=== PATIENT | male | born 1960 | race Caucasian/White ===

== ENCOUNTER 2016-11-26 11:42 | Inpatient (IN) | payer BC, OTHER ==
[~2016-11-26] VITALS: Ht 170.2 cm; Wt 79.2 kg
--- NOTE | 2016-11-26 13:20 | ERA ---
ER Documentation Chief Complaint Date/Time DATE: 11/26/16 TIME: 13:20 Chief Complaint send by pmd r/o gallstones ap x 4 days HPI The patient is a 56-year-old male, presenting with severe epigastric abdominal pain for 4 day, also with vomiting. He had similar symptoms intermittently for the last year but was for the last 4 days. He was seen by his physician who sent him to the ER. He denies fever, chills, neck pain, chest pain, nausea, vomiting, dysuria, diarrhea. He was seen at another the ER 4 days ago when he had an ultrasound that showed multiple gallstones. He does not smoke nor drink Past medical history: Cholelithiasis, CAD Past surgical history CABG, stent PCI ROS All systems reviewed and are negative except as per history of present illness. Medications Home Meds Reported Medications Clopidogrel Bisulfate (Clopidogrel) Unknown Strength Tablet, PO DAILY, #30 TAB 11/26/16 Atorvastatin* (Atorvastatin*) Unknown Strength Tablet, PO QHS, #30 TAB 11/26/16 Nitroglycerin* (Nitroglycerin* SL) 0.4 Mg Tab.subl, 0.4 MG SL Q5MIN Y for CHEST PAIN, BOTTLE 11/26/16 Fenofibrate* (Fenofibrate*) Unknown Strength Cap, PO DAILY, CAP 11/26/16 Metoprolol Succinate* (Toprol XL*) Unknown Strength Tab.sr.24h, PO DAILY, #30 TAB 11/26/16 Allergies Allergies: Coded Allergies: No Known Allergy (Unverified , 11/26/16) Physical Exam Vitals Vital Signs Date Time Temp Pulse Resp B/P Pulse Ox O2 Delivery O2 Flow Rate FiO2 11/26/16 16:02 58 20 107/78 97 Room Air 11/26/16 11:45 98.2 76 18 142/76 99 Physical Exam Const: No acute distress. Head: Atraumatic. Eyes: Normal Conjunctiva. ENT: Normal External Ears, Nose and Mouth. Neck: Full range of motion. No meningismus. Resp: Clear to auscultation bilaterally. Cardio: Regular rate and rhythm. Abd: Soft, non distended, normal bowel sounds, Moderate epigastric and right upper quadrant tenderness, no right lower quadrant, rigidity, rebound , CVA tenderness Skin: No petechiae or rashes. Back: No midline or flank tenderness. Ext: No cyanosis, or edema. Neur: Awake and alert. No focal deficit Psych: Normal Mood and Affect. Result Diagram: 11/26/16 1324 11/26/16 1324 Results 24 hrs Laboratory Tests Test 11/26/16 13:24 11/26/16 15:13 White Blood Count 5.810^3/ul Red Blood Count 6.5010^6/ul Hemoglobin 12.4g/dl Hematocrit 39.9% Mean Corpuscular Volume 61.4fl Mean Corpuscular Hemoglobin 19.1pg Mean Corpuscular Hemoglobin Concent 31.1g/dl Red Cell Distribution Width 16.4% Platelet Count 36517^3/UL Mean Platelet Volume fl Neutrophils % 72.6% Lymphocytes % 13.9% Monocytes % 11.3% Eosinophils % 1.7% Basophils % 0.2% Nucleated Red Blood Cells % 0.0/100WBC Neutrophils # 4.210^3/ul Lymphocytes # 0.810^3/ul Monocytes # 0.710^3/ul Eosinophils # 0.110^3/ul Basophils # 0.010^3/ul Nucleated Red Blood Cells # 0.010^3/ul Prothrombin Time 12.4Sec Prothrombin Time Ratio 1.0 INR International Normalized Ratio 0.92 Activated Partial Thromboplast Time 36.9Sec Sodium Level 143mmol/L Potassium Level 5.2mmol/L Chloride Level 106mmol/L Carbon Dioxide Level 26mmol/L Anion Gap 16 Blood Urea Nitrogen 17mg/dl Creatinine 1.52mg/dl Glucose Level 103mg/dl Calcium Level 10.1mg/dl Iron Level 27ug/dl Total Iron Binding Capacity 315ug/dl Percent Iron Saturation 9% SAT Ferritin 349.0ng/ml Total Bilirubin 3.3mg/dl Direct Bilirubin 2.30mg/dl Indirect Bilirubin 1.0mg/dl Aspartate Amino Transf (AST/SGOT) 201IU/L Alanine Aminotransferase (ALT/SGPT) 166IU/L Alkaline Phosphatase 86IU/L Total Protein 8.4g/dl Albumin 4.4g/dl Globulin 4.00g/dl Albumin/Globulin Ratio 1.10 Lipase 146U/L Bedside Urine pH (LAB) 6.5 Bedside Urine Protein (LAB) Negative Bedside Urine Glucose (UA) Negative Bedside Urine Ketones (LAB) Negative Bedside Urine Blood 1+ Bedside Urine Nitrite (LAB) Negative Bedside Urine Leukocyte Esterase (L Negative Current Medications Medications (Trade) Dose Ordered Sig/Alyssia Route PRN Reason Start Time Stop Time Status Last Admin Dose Admin Morphine Sulfate (morphine) 4 mg ONCE STAT IV 11/26/16 13:29 11/26/16 13:30 DC 11/26/16 14:04 Ondansetron HCl 4 mg 4 mg ONCE STAT IV 11/26/16 13:29 11/26/16 13:30 DC 11/26/16 14:04 Sodium Chloride 1,000 ml @ 1,000 mls/hr Q1H ONCE IV 11/26/16 13:30 11/26/16 14:29 DC 11/26/16 14:04 Piperacillin Sod/ Tazobactam Sod 100 ml @ 200 mls/hr ONCE ONCE IVPB 11/26/16 16:00 11/26/16 16:29 DC 11/26/16 15:55 Sodium Chloride (NS) 1,000 ml @ 100 mls/hr Q10H IV 11/26/16 17:30 11/26/16 17:55 IV Flush (NS 3 ml) 3 ml PER PROTOCOL IV 11/26/16 17:30 Ondansetron HCl (Zofran Inj) 4 mg Q6H PRN IV NAUSEA AND/OR VOMITING 11/26/16 17:30 Acetaminophen/ Hydrocodone Bitart (Kanorado (5/325)) 1 tab Q6H PRN PO MODERATE PAIN LEVEL 4-6 11/26/16 17:30 Morphine Sulfate (morphine) 2 mg Q4H PRN IV SEVERE PAIN LEVEL 7-10 11/26/16 17:30 Procedures/[place] [id number] Radiology Main Line: [phone] DIAGNOSTIC IMAGING REPORT Patient: JESSENIA BOYLE : 1960 Age: 56 Sex: M MR #: [id number] DOS: 11/26/16 0000 Ordering MD: CRISSY TALLEY NP Location: E/R Room/Bed: PROCEDURE: XR Chest. CLINICAL INDICATION: No infiltrates TECHNIQUE: AP Portable chest. COMPARISON: No pertinent prior examinations were submitted for comparison. FINDINGS: Sternotomy wires and mediastinal clips are visualized. The cardiac silhouette is enlarged. The lung volumes are low with basilar atelectasis. No focal consolidation, pleural effusion or pneumothorax is seen. The osseous structures are intact. IMPRESSION: No radiographic evidence of acute cardiopulmonary disease. Cardiomegaly, prior CABG. Physician Jennifer Date Time Electronically viewed and signed by Shaniqua Najera Physician on 11/26/2016 18: 10 CS/ CC: CRISSY TALLEY [place] [id number] Radiology Main Line: [phone] DIAGNOSTIC IMAGING REPORT Patient: JESSENIA BOYLE : 1960 Age: 56 Sex: M MR #: [id number] DOS: 11/26/16 1329 Ordering MD: LUDIVINA ROJAS MD Location: E/R Room/Bed: PROCEDURE: CT Abdomen and Pelvis without contrast. CLINICAL INDICATION: Abdominal pain TECHNIQUE: CT of the abdomen and pelvis was performed on a multi-detector scanner without IV contrast. Coronal and sagittal images were reformatted from the axial data set. One or more of the following dose reduction techniques were used: automated exposure control, adjustment of the mA and/or kV according to patient size, use of iterative reconstruction technique. CTDI = 15.29 mGy. DLP = 981.47 mGy-cm. COMPARISON: None. FINDINGS: The lung bases are clear. The heart size is normal, without pericardial effusion. Gallbladder is distended and contains multiple gallstones. Gallbladder wall thickening and pericholecystic edema/inflammation are present. Small calcific densities are seen along the expected course of the common bile duct (3-62, 3-64), concerning for choledocholithiasis. There is mild dilatation of the common bile duct, measuring 9 mm. No gross evidence of focal hepatic mass is seen. Pancreas, spleen, adrenal glands and kidneys are unremarkable except for benign renal cysts. No urolithiasis or obstructive uropathy is identified. The stomach is grossly unremarkable. The aorta is of normal caliber. Aortic vascular calcifications are present. There is no retroperitoneal lymphadenopathy. The jason hepatis region is clear. No bowel obstruction, free intraperitoneal air or abscess is identified. Mild retained fecal material may indicate constipation. The appendix is well visualized and normal. Scattered colonic diverticula are seen without diverticulitis. There is no evidence of colitis. Urinary bladder is moderately distended, concerning for urinary retention. No pelvic mass, free fluid or lymphadenopathy is identified. Bilateral fat containing inguinal hernias are noted. The surrounding osseous structures are remarkable for degenerative enthesopathy of the spine. No osteolytic or osteoblastic lesion is detected. The patient is status post L4 laminectomy. There is grade 1 anterolisthesis at L4-5, likely chronic secondary to facet arthrosis. IMPRESSION: 1. Gallbladder is distended and contains multiple gallstones. Gallbladder wall thickening and pericholecystic inflammation are identified. Findings are suggestive of acute cholecystitis. 2. Small calcific densities are seen along the expected course of the distal common bile duct, concerning for choledocholithiasis. There is mild dilatation of the common bile duct, measuring 9 mm. Consider MRCP for further evaluation. 3. Aortoiliac atherosclerotic calcifications are present. 4. Urinary bladder is moderately distended, concerning for urinary retention. 5. Mild retained fecal material may indicate constipation. 6. Bilateral fat containing inguinal hernias are seen, without incarceration. RPTAT: AAQQ .Silvano Abebe MD, MD Date Time Electronically viewed and signed by .Silvano Abebe MD, MD on 11/26/2016 15: 15 .R/ CC: LUDIVINA ROJAS MD [place] [address] Radiology Main Line: [phone] DIAGNOSTIC IMAGING REPORT Patient: JESSENIA BOYLE : 1960 Age: 56 Sex: M MR #: [id number] DOS: 11/26/16 1540 Ordering MD: LUDIVINA ROJAS MD Location: E/R Room/Bed: PROCEDURE: US Abdomen. CLINICAL INDICATION: abdominal pain TECHNIQUE: Multiple real-time images were acquired of the patient's right upper quadrant abdomen and retroperitoneum utilizing a high resolution transducer. COMPARISON: None FINDINGS: The liver demonstrates normal echogenicity. The liver is normal in size and no focal solid lesions are seen. The liver measures 14.4 cm in length. The portal vein is patent with normal direction of flow. No intrahepatic biliary dilatation is seen. There are calcified stones within the gallbladder. There is a 2.3 x 1.8 cm echogenic structure within the gallbladder which likely represents a sludge ball. There is no pericholecystic fluid or gallbladder wall thickening. The common bile duct measures 3 mm in maximal dimension. The visualized portions of the pancreas are unremarkable. The tail of the pancreas is not seen. No free fluid is identified. The right kidney is normal in size, and demonstrate normal echogenicity and cortical thickness. The right kidney measures 11 cm in long dimension. There is no evidence of hydronephrosis. There are no kidney stones. There is a 3.8 cm simple cyst in the right kidney. RPTAT: AA IMPRESSION: Calcified stones and sludge within the gallbladder. Probable sludge ball within the gallbladder. However a mass is not completely excluded. Follow-up ultrasound is recommended. No evidence of gallbladder wall thickening or pericholecystic fluid. 3.8 cm simple cyst in the right kidney. .Jd Ambriz MD, MD Date Time Electronically viewed and signed by .Jd Ambriz MD, MD on 11/26/2016 16: 19 .S/ CC: LUDIVINA ROJAS MEDICAL MAKING DECISION: The patient is a 56-year-old male, presenting with symptomatic cholelithiasis, probable CBD stone. He was treated with morphine 4 mg IV for pain and Zofran 4 mg IV for nausea and 1 L normal saline for clinical dehydration and Zosyn IV for suspected acute cholecystitis with good response. He would need to have MRCP for further evaluation of CBD stone The differential diagnoses considered include but are not limited to cholelithiasis, cholecystitis, cystitis, pancreatitis, hepatitis, gastritis, peptic ulcer disease, gastric ulcer, appendicitis, diverticulitis, cholangitis, choledocholithiasis, partial small bowel obstruction. Consultation: I discussed the patient with the on-call general surgeon Dr. Farmer at 4:50 PM. He was made aware of the lab, the treatment, the posterior condition. The accepted the patient Departure Diagnosis: Primary Impression: Symptomatic cholelithiasis Additional Impressions: Abnormal LFTs Renal insufficiency Anemia Condition: Stable Comments I discussed the findings with the patient. I discussed the patient with the on- call hospitalist Dr. Munoz at 5 PM who was made aware of the lab, the treatment, the patient condition and my discussion with the general surgeon. The patient is admitted to [facility] The patient's blood pressure was elevated (>120/80) but appears stable without evidence of hypertension emergency or urgency. The patient was counseled about the risks of hypertension and urged to pursue outpatient monitoring and therapy within a week with their primary care physician. LUDIVINA ROJAS MD Nov 26, 2016 13:20
[2016-11-26] MEDS ORDERED: ONDANSETRON 4 MG INJ IV STA (13:29)
[2016-11-26] MEDS ORDERED: morphine 4 MG/ML VIAL IV STA (13:29)
[2016-11-26] MEDS ORDERED: SOD CHLORIDE 0.9% 1,000 ML IV ONE (13:30)
[2016-11-26 13:43] LABS: ABNORMAL IP MESSAGE 1; BASOPHILS % 0.2 % (0.0-2.0); EOSINOPHILS # 0.1 10^3/ul (0.0-0.5); EOSINOPHILS % 1.7 % (0.0-7.0); HEMATOCRIT 39.9 % (42.0-52.0); HEMOGLOBIN 12.4 g/dl (14.0-18.0); LYMPHOCYTES # 0.8 10^3/ul (0.8-2.9); LYMPHOCYTES % 13.9 % (15.0-51.0); MEAN CORPUSCULAR HEMOGLOBIN 19.1 pg (29.0-33.0); MEAN CORPUSCULAR HGB CONC 31.1 g/dl (32.0-37.0); MEAN CORPUSCULAR VOLUME 61.4 fl (82.0-101.0); MONOCYTE # 0.7 10^3/ul (0.3-0.9); MONOCYTES % 11.3 % (0.0-11.0); NEUTROPHIL # 4.2 10^3/ul (1.6-7.5); NEUTROPHILS % 72.6 % (39.0-77.0); PLATELET COUNT 260 10^3/UL (140-415); POSITIVE DIFF @See below; RED CELL DISTRIBUTION WIDTH 16.4 % (11.5-14.5); WHITE BLOOD COUNT 5.8 10^3/ul (4.8-10.8)
[2016-11-26 14:07] LABS: ALBUMIN 4.4 g/dl (3.3-4.9); ALBUMIN/GLOBULIN RATIO 1.1; BILIRUBIN,DIRECT 2.3 mg/dl (0.00-0.20); BILIRUBIN,TOTAL 3.3 mg/dl (0.2-1.3); CALCIUM 10.1 mg/dl (8.4-10.2); CREATININE 1.52 mg/dl (0.61-1.24); POTASSIUM 5.2 mmol/L (3.5-5.1); TOTAL PROTEIN 8.4 g/dl (6.1-8.1)
[2016-11-26] MEDS ORDERED: FENO200 PO (14:35)
[2016-11-26] MEDS ORDERED: METO-335 PO (14:35)
[2016-11-26] MEDS ORDERED: NITR0.4T32 SL (14:36)
[2016-11-26] MEDS ORDERED: ATOR40TA68 PO (14:37)
[2016-11-26] MEDS ORDERED: CLOP75TA27 PO (14:37)
[2016-11-26 15:07] LABS: URINE BLOOD (Dip) POC 1+ (NEGATIVE)
--- NOTE | 2016-11-26 15:16 | RADRPT ---
PROCEDURE: CT Abdomen and Pelvis without contrast. CLINICAL INDICATION: Abdominal pain TECHNIQUE: CT of the abdomen and pelvis was performed on a multi-detector scanner without IV contr ast. Coronal and sagittal images were reformatted from the axial data set. One or more of the foll owing dose reduction techniques were used: automated exposure control, adjustment of the mA and/or k V according to patient size, use of iterative reconstruction technique. CTDI = 15.29 mGy. DLP = 981 .47 mGy-cm. COMPARISON: None. FINDINGS: The lung bases are clear. The heart size is normal, without pericardial effusion. Gallbladder is d istended and contains multiple gallstones. Gallbladder wall thickening and pericholecystic edema/inf lammation are present. Small calcific densities are seen along the expected course of the common emilia e duct (3-62, 3-64), concerning for choledocholithiasis. There is mild dilatation of the common bile duct, measuring 9 mm. No gross evidence of focal hepatic mass is seen. Pancreas, spleen, adrenal gl ands and kidneys are unremarkable except for benign renal cysts. No urolithiasis or obstructive urop athy is identified. The stomach is grossly unremarkable. The aorta is of normal caliber. Aortic vascular calcifications are present. There is no retroperit resendez lymphadenopathy. The jason hepatis region is clear. No bowel obstruction, free intraperitoneal air or abscess is identified. Mild retained fecal materia l may indicate constipation. The appendix is well visualized and normal. Scattered colonic diverticu la are seen without diverticulitis. There is no evidence of colitis. Urinary bladder is moderately d istended, concerning for urinary retention. No pelvic mass, free fluid or lymphadenopathy is identif ied. Bilateral fat containing inguinal hernias are noted. The surrounding osseous structures are remarkable for degenerative enthesopathy of the spine. No os teolytic or osteoblastic lesion is detected. The patient is status post L4 laminectomy. There is gra de 1 anterolisthesis at L4-5, likely chronic secondary to facet arthrosis. IMPRESSION: 1. Gallbladder is distended and contains multiple gallstones. Gallbladder wall thickening and peric holecystic inflammation are identified. Findings are suggestive of acute cholecystitis. 2. Small calcific densities are seen along the expected course of the distal common bile duct, conc erning for choledocholithiasis. There is mild dilatation of the common bile duct, measuring 9 mm. Co nsider MRCP for further evaluation. 3. Aortoiliac atherosclerotic calcifications are present. 4. Urinary bladder is moderately distended, concerning for urinary retention. 5. Mild retained fecal material may indicate constipation. 6. Bilateral fat containing inguinal hernias are seen, without incarceration. RPTAT: AAQQ .Silvano Abebe MD, MD Date Time Electronically viewed and signed by .Silvano Abebe MD, on 11/26/2016 15:15 .R/
[2016-11-26] MEDS ORDERED: PIPER-TAZO 3.375 GM IV (PMX) 100 ML IVPB ONE (16:00)
--- NOTE | 2016-11-26 16:19 | RADRPT ---
PROCEDURE: US Abdomen. CLINICAL INDICATION: abdominal pain TECHNIQUE: Multiple real-time images were acquired of the patient's right upper quadrant abdomen a nd retroperitoneum utilizing a high resolution transducer. COMPARISON: None FINDINGS: The liver demonstrates normal echogenicity. The liver is normal in size and no focal solid lesions are seen. The liver measures 14.4 cm in length. The portal vein is patent with normal direction of f low. No intrahepatic biliary dilatation is seen. There are calcified stones within the gallbladder. There is a 2.3 x 1.8 cm echogenic structure withi n the gallbladder which likely represents a sludge ball. There is no pericholecystic fluid or gallbl adder wall thickening. The common bile duct measures 3 mm in maximal dimension. The visualized portions of the pancreas are unremarkable. The tail of the pancreas is not seen. No free fluid is identified. The right kidney is normal in size, and demonstrate normal echogenicity and cortical thickness. The right kidney measures 11 cm in long dimension. There is no evidence of hydronephrosis. There are n o kidney stones. There is a 3.8 cm simple cyst in the right kidney. RPTAT: AA IMPRESSION: Calcified stones and sludge within the gallbladder. Probable sludge ball within the gallbladder. However a mass is not completely excluded. Follow-up ul trasound is recommended. No evidence of gallbladder wall thickening or pericholecystic fluid. 3.8 cm simple cyst in the right kidney. .Jd Ambriz MD, MD Date Time Electronically viewed and signed by .Jd Ambriz MD, MD on 11/26/2016 16:19 .S/
[2016-11-26] MEDS ORDERED: HYDROCODONE/APAP (5/325) TAB PO PRN (17:30)
[2016-11-26] MEDS ORDERED: NACL 0.9% 3 ML SYG IV SCH (17:30)
--- NOTE | 2016-11-26 17:47 | HP ---
Date/Time of Note Date/Time of Note DATE: 11/26/16 TIME: 17:41 Assessment/Plan VTE Prophylaxis VTE Prophylaxis Intervention: SCD's Assessment/Plan Chief Complaint/Hosp Course 1. Cholelithiasis with possible underlying choledocholithiasis. The patient will be kept n.p.o. The patient will be provided with adequate pain control. The patient will be started on empiric antibiotics to prevent any cholangitis. General surgery consult has been obtained. MRCP will be obtained to rule out choledocholithiasis. If MRCP is positive for choledocholithiasis, will obtain gastroenterology consult. 2. Transaminitis with hyperbilirubinemia. Most probably secondary to #1. Management as per #1. Avoid hepatotoxic medications. 3. Acute nonoliguric kidney injury in a patient with an unknown baseline creatinine. Patient denied any history of renal issues. The patient will be hydrated adequately. Nephrotoxic drugs will be used with caution. 4. Hyperkalemia. Most probably secondary to underlying acute kidney injury. Will obtain a 12-lead EKG. 5. CAD. History of coronary stents and CABG. The patient's antiplatelet therapy will be put on hold because of possible surgical intervention. Patient' s beta-blockers will be resumed the patient's blood pressure is running high. Will obtain a 12-lead EKG. Will obtain a chest x-ray to evaluate for any pulmonary vascular congestion. 6. Dyslipidemia. Will hold the patient's antilipemic medications as of now because of underlying transaminitis and hyperbilirubinemia. 7. Microcytic, hypochromic anemia. Etiology unclear. Will obtain an iron panel. Plan: The patient will be admitted to inpatient medical/surgical floor. The patient will be kept n.p.o. The patient will be started on DVT prophylaxis. The patient will remain a full code. Activities will be as tolerated . The rest of the patient's management will be based on the clinical course, inputs from consultants, and the results of diagnostic studies. Based on the patient's clinical presentation, he most probably requires at least 1 midnight's stay for further management and evaluation of his clinical presentation. The case and management of this patient was fully discussed with Dr. Franklin. Problems: HPI/ROS Admit Date/Time Admit Date/Time Reason for admission: Sent in by primary MD because of abdominal pain. Consultants 1. Solo Farmer MD, General Surgery. This is a 56-year-old [place] male with past medical history of essential hypertension, dyslipidemia, CAD status post coronary artery stenting and CABG who came to the emergency room with chief complaint of abdominal pain. The patient went to see his creative lead because of abdominal pain. As per the patient's family who was at the bedside, he has known history of gallstones and has been having abdominal pain on and off for the past 1 year. During this episode he had abdominal pain for 4 days. The patient had an episode of nonbilious, nonbloody vomiting. The patient denied any fevers. The patient has been constipated. Although the patient has extensive cardiac history, he does not see any admissions representative in the [place]. He had his CABG done in [place]. The patient is not compliant with his antiplatelet medications. The patient verbalized that he took Plavix last time approximately 10 days ago. In the emergency room, the patient was noticed to have transaminitis with hyperbilirubinemia. The patient was noticed to have microcytic, hypochromic anemia. The patient underwent a CT scan of the abdomen and pelvis that showed distended gallbladder with multiple gallstones and gallbladder wall thickening and pericholecystic inflammation, findings suggestive of cholecystitis. The CT scan also revealed mild dilatation of the common bile duct measuring up to [address] also showed small calcific densities along the expected course of the common bile duct concerning for choledocholithiasis. The gallbladder ultrasound showed calcified stones and sludge within the gallbladder, but no evidence of gallbladder wall thickening or pericholecystic fluid. He was treated with IV fluids, analgesics, and IV antibiotics in the emergency room. ROS Constitutional: no complaints, poor po Eyes: no complaints ENT: no complaints Respiratory: no complaints Cardiovascular: no complaints Gastrointestinal: constipation, nausea, pain, vomiting Genitourinary: no complaints Musculoskeletal: no complaints Skin: no complaints Neurologic: no complaints Endocrine: no complaints Lymphatic: no complaints Psychological: no complaints Immunologic: no complaints PMH/Family/Social Past Medical History Medical History: coronary artery disease, high cholesterol, hypertension Past Surgical History Past Surgical Hx: coronary bypass surgery, other (Hemorrhoidectomy, back surgery, inguinal hernia repair.) Social History Patient lives at home with his family. Currently not working. Alcohol Use: none Smoking Status: Never smoker Drug Use: none Exam/Review of Systems Vital Signs Vitals Vital Signs Date Time Temp Pulse Resp B/P Pulse Ox O2 Delivery O2 Flow Rate FiO2 11/26/16 16:02 58 20 107/78 97 Room Air 11/26/16 11:45 98.2 Exam Exam General: Adequately build 56 year-old male lying in bed in no apparent distress. HEENT: Normocephalic, atraumatic. Eyes: Icteric sclerae, conjunctivae clear. ENT : Nasal septum midline, oral mucosa moist. Neck supple. Respiratory: Bilaterally clear breath sounds. No use of accessory muscles of respiration. No adventitious breath sounds. Cardiovascular: S1, S2 heard. No murmurs or gallops. Abdomen: Soft and nondistended. Bowel sounds positive in all 4 quadrants. Epigastric tenderness. No guarding. Genitourinary: Deferred. Extremities: No cyanosis, no clubbing, no edema. Peripheral pulses palpable. Neurologic: Cranial nerves II through XII grossly intact. The patient is awake, alert, and oriented. Skin: Normal skin turgor. No skin rashes. Labs Result Diagram: 11/26/16 1324 11/26/[address] Scan of the Abdomen and Pelvis IMPRESSION: 1. Gallbladder is distended and contains multiple gallstones. Gallbladder wall thickening and pericholecystic inflammation are identified. Findings are suggestive of acute cholecystitis. 2. Small calcific densities are seen along the expected course of the distal common bile duct, concerning for choledocholithiasis. There is mild dilatation of the common bile duct, measuring 9 mm. Consider MRCP for further evaluation. 3. Aortoiliac atherosclerotic calcifications are present. 4. Urinary bladder is moderately distended, concerning for urinary retention. 5. Mild retained fecal material may indicate constipation. 6. Bilateral fat containing inguinal hernias are seen, without incarceration. Gallbladder Ultrasound IMPRESSION: Calcified stones and sludge within the gallbladder. Probable sludge ball within the gallbladder. However a mass is not completely excluded. Follow-up ultrasound is recommended. No evidence of gallbladder wall thickening or pericholecystic fluid. 3.8 cm simple cyst in the right kidney. CRISSY TALLEY NP Nov 26, 2016 17:47
[2016-11-26] MEDS: SOD CHLORIDE 0.9% 1,000 ML IV SCH ×2 (17:55→23:14)
--- NOTE | 2016-11-26 17:56 | CONS ---
Date/Time of Note Date/Time of Note DATE: 11/26/16 TIME: 17:50 Assessment/Plan Assessment/Plan Additional Assessment/Plan Cholecystitis with possible choledocholithiasis Recommend: GI consultation and MRCP Laparoscopic cholecystectomy when common duct is cleared Consultation Date/Type/Reason Admit Date/Time Sent for admission: Sent in by primary MD because of abdominal pain. Consultants 1. Prasad Dyer MD, General Surgery This is a 56-year-old Amharic male with past medical history of essential hypertension, dyslipidemia, CAD status post coronary artery stenting and CABG who came to the emergency room with chief complaint of abdominal pain. 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 As per the patient's family was at the bedside, he has known history of gallstones and has been having abdominal pain on and off for the past 1 year. During this episode he had abdominal pain for 4 days. The patient had an episode of nonbilious nonbloody vomiting. The patient denied any fevers. The patient has been constipated. Although the patient has extensive cardiac history, he does not see any blindmaker in the [place]. He had his CABG done in [place]. The patient is not compliant with his antiplatelet medications. The patient verbalized that he took Plavix last time approximately 10 days ago. In the emergency room, the patient was noticed to have transaminitis with hyperbilirubinemia. The patient was noticed to have microcytic, hypochromic anemia. The patient underwent a CT scan of the abdomen and pelvis that showed distended gallbladder with multiple gallstones and gallbladder wall thickening and pericholecystic inflammation, findings suggestive of cholecystitis. The CT scan also revealed mild dilatation of the common bile duct measuring up to [address] also showed small calcific densities along the expected course of the common bile duct concerning for choledocholithiasis. The gallbladder ultrasound showed calcified stones and sludge within the gallbladder, but no evidence of gallbladder wall thickening or pericholecystic fluid. He was treated with IV fluids, analgesics, and IV antibiotics in the emergency room. Date of Consultation: Nov 26, 2016 Reason for Consultation Cholecystitis and possible choledocholithiasis Hx of Present Illness Patient is a 56-year-old male who is 13 years status post coronary artery bypass. He presents with 4 days of right upper quadrant and midepigastric abdominal pain. Abdominal ultrasound shows gallstones. CT shows gallstones with gallbladder wall thickening and pericholecystic fluid suggestive of cholecystitis. Ductal dilatation is not noted. He has had no fevers, chills, or jaundice Constitutional: no complaints Eyes: no complaints ENT: no complaints Respiratory: no complaints Cardiovascular: no complaints Gastrointestinal: constipation, nausea, pain, vomiting Genitourinary: no complaints (Gastric) Musculoskeletal: no complaints Skin: no complaints Neurologic: no complaints Endocrine: no complaints Lymphatic: no complaints Psychological: no complaints Immunologic: no complaints Past Medical History Medical History: coronary artery disease, high cholesterol, hypertension Past Surgical History Past Surgical Hx: coronary bypass surgery, other (Hemorrhoidectomy, back surgery, inguinal hernia repair.) Family History Significant Family History: no pertinent family hx Social History Alcohol Use: none Smoking Status: Never smoker Drug Use: none Exam/Review of Systems Vital Signs Vitals Vital Signs Date Time Temp Pulse Resp B/P Pulse Ox O2 Delivery O2 Flow Rate FiO2 11/26/16 16:02 58 20 107/78 97 Room Air 11/26/16 11:45 98.2 Exam Constitutional: alert, oriented Psych: no complaints Head: normocephalic Eyes: nl conjunctiva ENMT: nl external ears & nose Neck: supple Respiratory: clear to auscultation Cardiovascular: regular rate and rhythm Gastrointestinal: tender (Epigastrium) Genitourinary - Male: nl penis, other (Small reducible bilateral inguinal hernias) Musculoskeletal: nl extremities to inspection Extremities: normal pulses Neurological: CELLULOID TRIMMER II-XII intact, other (Speaks mostly Farsi) Skin: nl turgor Lymph: nl lymph nodes Results Result Diagram: 11/26/16 1324 11/26/16 1324 Results 24 hrs Laboratory Tests Test 11/26/16 13:24 11/26/16 15:13 White Blood Count 5.8 Red Blood Count 6.50 H Hemoglobin 12.4 L Hematocrit 39.9 L Mean Corpuscular Volume 61.4 L Mean Corpuscular Hemoglobin 19.1 L Mean Corpuscular Hemoglobin Concent 31.1 L Red Cell Distribution Width 16.4 H Platelet Count 260 Mean Platelet Volume Neutrophils % 72.6 Lymphocytes % 13.9 L Monocytes % 11.3 H Eosinophils % 1.7 Basophils % 0.2 Nucleated Red Blood Cells % 0.0 Neutrophils # 4.2 Lymphocytes # 0.8 Monocytes # 0.7 Eosinophils # 0.1 Basophils # 0.0 Nucleated Red Blood Cells # 0.0 Sodium Level 143 Potassium Level 5.2 H Chloride Level 106 Carbon Dioxide Level 26 Anion Gap 16 Blood Urea Nitrogen 17 Creatinine 1.52 H Glucose Level 103 Calcium Level 10.1 Total Bilirubin 3.3 H Direct Bilirubin 2.30 H Indirect Bilirubin 1.0 Aspartate Amino Transf (AST/SGOT) 201 H Alanine Aminotransferase (ALT/SGPT) 166 H Alkaline Phosphatase 86 Total Protein 8.4 H Albumin 4.4 Globulin 4.00 H Albumin/Globulin Ratio 1.10 Lipase 146 Bedside Urine pH (LAB) 6.5 Bedside Urine Protein (LAB) Negative Bedside Urine Glucose (UA) Negative Bedside Urine Ketones (LAB) Negative Bedside Urine Blood 1+ H Bedside Urine Nitrite (LAB) Negative Bedside Urine Leukocyte Esterase (L Negative Medications Medications Current Medications Sodium Chloride (NS) 1,000 ml @ 100 mls/hr Q10H IV ; Start 11/26/16 at 17:30 Ondansetron HCl (Zofran Inj) 4 mg Q6H PRN IV NAUSEA AND/OR VOMITING; Start at 17:30 Acetaminophen/ Hydrocodone Bitart ([place] (5/325)) 1 tab Q6H PRN PO MODERATE PAIN LEVEL 4-6; Start 11/26/16 at 17:30 Morphine Sulfate 2 mg 2 mg Q4H PRN IV SEVERE PAIN LEVEL 7-10; Start 11/26/16 at 17:30 Piperacillin Sod/ Tazobactam Sod (Zosyn 3.375gm/ 100 ml (Pmx)) 100 ml @ 200 mls /hr Q8 IVPB ; Start 11/26/16 at 21:00 PRASAD DYER MD Nov 26, 2016 17:56
--- NOTE | 2016-11-26 18:10 | RADRPT ---
PROCEDURE: XR Chest. CLINICAL INDICATION: No infiltrates TECHNIQUE: AP Portable chest. COMPARISON: No pertinent prior examinations were submitted for comparison. FINDINGS: Sternotomy wires and mediastinal clips are visualized. The cardiac silhouette is enlarged. The lung volumes are low with basilar atelectasis. No focal cons olidation, pleural effusion or pneumothorax is seen. The osseous structures are intact. IMPRESSION: No radiographic evidence of acute cardiopulmonary disease. Cardiomegaly, prior CABG. Physician Jennifer Date Time Electronically viewed and signed by Physician Jennifer on 11/26/2016 18:10 CS/
[2016-11-26 18:44] LABS: INR 0.92; PROTIME 12.4 Sec (12.2-14.2)
[2016-11-26 18:45] LABS: PARTIAL THROMBOPLASTIN TIME 36.9 Sec (25.0-35.0)
[2016-11-26 18:46] LABS: IRON 27 ug/dl (35-150)
[2016-11-26 18:55] LABS: TOTAL IRON BINDING CAPACITY 315 ug/dl (241-421)
[2016-11-26 20:00] VITALS: BP 121/77; RESP 20; Ht 170.2 cm; Wt 79.2 kg
[2016-11-26] MEDS: PIPER-TAZO 3.375 GM IV (PMX) 100 ML IVPB SCH (22:00)
[2016-11-26] MEDS ORDERED: NITROGLYCERIN (SL) 0.4 MG TAB SL PRN (23:30)
--- NOTE | 2016-11-26 23:51 | RADRPT ---
PROCEDURE: MR Abdomen and MRCP without Contrast. CLINICAL INDICATION: 56 years old male. Abdominal pain TECHNIQUE: MRI of the abdomen and MRCP was performed without intravenous contrast. MRI of the abdo men was performed as: Axial and coronal SS-T2 FSE . MRCP sequences include coronal T2 3D RST images and 3-D coronal rotating MIP images of the biliary tree. COMPARISON: Noncontrast CT abdomen pelvis and right upper quadrant ultrasound from the same day FINDINGS: Lung Bases: Normal. Liver: Sub centimeter cyst medial left lobe (/). Gall Bladder: There are multiple calculi mixed with sludge layering dependently in the gallbladder. Gallbladder is mildly distended. Gallbladder wall measures 3 mm with minimal edema in the overlying fat. Bile ducts: Mild dilatation of intrahepatic and extrahepatic bile ducts. Left intrahepatic bile duct measures 0.6 cm and common bile duct measures 1 cm and is followed to the ampulla. There is a possi ble 0.2 cm nonobstructing calculus in the suprapancreatic segment of the common bile duct at the samara ction with the cystic duct corresponding to the hyperdense focus seen on CT (07/01). No other common duct stones are visualized. Pancreatic duct: Pancreatic duct is normal in caliber and configuration. Negative for divisum. Pancreas: Normal noncontrast appearance on T2-weighted imaging. Spleen: Normal noncontrast appearance. Adrenal glands: Normal. Kidneys: 6.4 cm exophytic cyst posterior right kidney involving renal sinus fat and perinephric fac t. There is mild fullness of the right pelvicaliceal system. There are sub centimeter bilateral nubia l cortical cysts. Negative for left hydronephrosis. Vasculature: Normal noncontrast appearance. Lymph nodes: No enlarged lymph nodes. Bowel: Normal. Peritoneal space: No free fluid. Abdominal wall: Normal. Musculoskeletal: Multilevel degenerative changes in spine. No suspicious bone lesions. IMPRESSION: Cholelithiasis and gallbladder sludge. Gallbladder is mildly distended and gallbladder wall measures at the upper limits of normal with minimal edema in the pericholecystic fat. Findings are equivocal for acute cholecystitis and clinical correlation is required. Without intravenous contrast, this MR I does not distinguish a sludge ball from a gallbladder mass and follow-up ultrasound is advised aft er the acute situation resolves. Mild intrahepatic and extrahepatic biliary duct dilatation. There is a suspected 0.2 cm nonobstructi ng common duct stone in the supra-pancreatic segment of the common bile duct corresponding to a punc larson calcification seen on CT. Negative for an obstructing calculus. Hepatorenal cysts. RPTAT: HCTS Physician Crow Date Time Electronically viewed and signed by Oralia Pan Physician on 11/26/2016 23:51 CS/
[2016-11-27] VITALS (13 sets, daily range): BP systolic 103–134; BP diastolic 63–80; PULSE 68–84; RESP 16–24
[2016-11-27] MEDS: PIPER-TAZO 3.375 GM IV (PMX) 100 ML IVPB SCH ×3 (05:51→21:53)
[2016-11-27 05:53] LABS: ABNORMAL IP MESSAGE 1; BASOPHILS % 0.3 % (0.0-2.0); EOSINOPHILS # 0.1 10^3/ul (0.0-0.5); EOSINOPHILS % 3.9 % (0.0-7.0); HEMATOCRIT 37.4 % (42.0-52.0); HEMOGLOBIN 11.7 g/dl (14.0-18.0); LYMPHOCYTES # 1.1 10^3/ul (0.8-2.9); LYMPHOCYTES % 30.1 % (15.0-51.0); MEAN CORPUSCULAR HEMOGLOBIN 19.2 pg (29.0-33.0); MEAN CORPUSCULAR HGB CONC 31.3 g/dl (32.0-37.0); MEAN CORPUSCULAR VOLUME 61.4 fl (82.0-101.0); MEAN PLATELET VOLUME 10.4 fl (7.4-10.4); MONOCYTE # 0.4 10^3/ul (0.3-0.9); MONOCYTES % 10.5 % (0.0-11.0); NEUTROPHILS % 54.9 % (39.0-77.0); PLATELET COUNT 245 10^3/UL (140-415); POSITIVE DIFF @See below; RED BLOOD COUNT 6.09 10^6/ul (4.70-6.10); RED CELL DISTRIBUTION WIDTH 16.9 % (11.5-14.5); WHITE BLOOD COUNT 3.6 10^3/ul (4.8-10.8)
[2016-11-27 06:46] LABS: ALBUMIN 3.8 g/dl (3.3-4.9); ALBUMIN/GLOBULIN RATIO 1.05; BILIRUBIN,DIRECT 0.1 mg/dl (0.00-0.20); BILIRUBIN,INDIRECT 0.9 mg/dl (0-1.1); CREATININE 1.3 mg/dl (0.61-1.24); POTASSIUM 4.1 mmol/L (3.5-5.1); TOTAL PROTEIN 7.4 g/dl (6.1-8.1)
[2016-11-27] MEDS ORDERED: ROCURONIUM 50 MG INJ ONE (07:00)
[2016-11-27] MEDS ORDERED: CEFAZOLIN 1 GM INJ ONE (07:00)
[2016-11-27 07:54] LABS: MAGNESIUM 2.1 mg/dl (1.7-2.5); PHOSPHORUS 3.4 mg/dl (2.5-4.9)
[2016-11-27] MEDS ORDERED: INDOMETHACIN 50 MG SUPP PR ONE (08:30)
[2016-11-27] MEDS ORDERED: CLOPIDOGREL 75 MG TAB PO SCH (09:00)
[2016-11-27] MEDS: DOCUSATE SODIUM 100 MG CAP PO SCH ×2 (09:00→21:53)
[2016-11-27] MEDS: METOPROLOL (XL) 25 MG TAB PO SCH (09:00)
--- NOTE | 2016-11-27 11:05 | PN ---
Date/Time of Note Date/Time of Note DATE: 11/27/16 TIME: 10:57 Assessment/Plan VTE Prophylaxis VTE Prophylaxis Intervention: SCD's Lines/Catheters IV [facility]ter Type (from [facility] Peripheral IV Assessment/Plan Chief Complaint/Hosp Course 1. Cholelithiasis with possible underlying choledocholithiasis. The patient will be kept n.p.o. The patient will be provided with adequate pain control. The patient will be continued on empiric antibiotics to prevent any cholangitis. General surgery consult has been obtained. MRCP findings are equivocal for acute cholecystitis. MRCP also showing dilated intrahepatic and extrahepatic biliary ductal dilatation with a suspected 0.2 cm nonobstructing common bile duct stone in the suprapancreatic segment of the common bile duct. He is scheduled for an ERCP today. 2. Transaminitis with hyperbilirubinemia. Most probably secondary to #1. Management as per #1. Avoid hepatotoxic medications. 3. Acute nonoliguric kidney injury in a patient with an unknown baseline creatinine. Patient denied any history of renal issues. The patient will be hydrated adequately. Nephrotoxic drugs will be used with caution. 4. Hyperkalemia. Most probably secondary to underlying acute kidney injury. Resolved. 5. CAD. History of coronary stents and CABG. The patient's antiplatelet therapy will be put on hold because of possible surgical intervention. Continue beta-blockers . Patient is a 12-lead EKG showing T-wave inversion in leads aVF , V1, V2, V3, and V4. Will have cardiology evaluate the patient. 6. Dyslipidemia. Will hold the patient's antilipemic medications as of now because of underlying transaminitis and hyperbilirubinemia. 7. Microcytic, hypochromic anemia. Iron panel showing low iron saturation and low iron with high ferritin. Monitor H&H closely. 8. Fluids, electrolytes, and nutrition. IV fluids. N.p.o. except for medications. 9. DVT prophylaxis. Bilateral sequential compression devices. 10. Plan. Continue IV hydration. Continue pain control. Continue antimicrobials. Await ERCP. Cardiology consult. The case and management of this patient was fully discussed with Dr. Franklin. Problems: Subjective 24 Hr Interval Summary Free Text/Dictation Denies any abdominal pain. Exam/Review of Systems Vital Signs Vitals Vital Signs Date Time Temp Pulse Resp B/P Pulse Ox O2 Delivery O2 Flow Rate FiO2 11/27/16 07:56 97.3 60 18 109/70 97 11/26/16 17:55 Room Air Intake and Output 11/26/16 11/26/16 11/27/16 15:00 23:00 07:00 Intake Total 100 ml 1750 ml Balance 100 ml 1750 ml Exam General: Adequately build 56 year-old male lying in bed in no apparent distress. HEENT: Normocephalic, atraumatic. Eyes: Anicteric sclerae, conjunctivae clear. ENT: Nasal septum midline, oral mucosa moist. Neck supple. Respiratory: Bilaterally clear breath sounds. No use of accessory muscles of respiration. No adventitious breath sounds. Cardiovascular: S1, S2 heard. No murmurs or gallops. Abdomen: Soft and nondistended. Bowel sounds positive in all 4 quadrants. Minimal epigastric tenderness. No guarding. Genitourinary: Deferred. Extremities: No cyanosis, no clubbing, no edema. Peripheral pulses palpable. Neurologic: Cranial nerves II through XII grossly intact. The patient is awake, alert, and oriented. Skin: Normal skin turgor. No skin rashes. Results Result Diagram: 11/27/16 0517 11/27/16 0512 Results 24 hrs Laboratory Tests Test 11/26/16 13:24 11/26/16 15:13 11/27/16 05:12 11/27/16 05:17 White Blood Count 5.8 3.6 #L Red Blood Count 6.50 H 6.09 Hemoglobin 12.4 L 11.7 L Hematocrit 39.9 L 37.4 L Mean Corpuscular Volume 61.4 L 61.4 L Mean Corpuscular Hemoglobin 19.1 L 19.2 L Mean Corpuscular Hemoglobin Concent 31.1 L 31.3 L Red Cell Distribution Width 16.4 H 16.9 H Platelet Count 260 245 Mean Platelet Volume 10.4 Neutrophils % 72.6 54.9 Lymphocytes % 13.9 L 30.1 Monocytes % 11.3 H 10.5 Eosinophils % 1.7 3.9 Basophils % 0.2 0.3 Nucleated Red Blood Cells % 0.0 0.0 Neutrophils # 4.2 2.0 Lymphocytes # 0.8 1.1 Monocytes # 0.7 0.4 Eosinophils # 0.1 0.1 Basophils # 0.0 0.0 Nucleated Red Blood Cells # 0.0 0.0 Prothrombin Time 12.4 Prothrombin Time Ratio 1.0 INR International Normalized Ratio 0.92 Activated Partial Thromboplast Time 36.9 H Sodium Level 143 144 Potassium Level 5.2 H 4.1 Chloride Level 106 111 H Carbon Dioxide Level 26 25 Anion Gap 16 12 Blood Urea Nitrogen 17 14 Creatinine 1.52 H 1.30 H Glucose Level 103 85 Calcium Level 10.1 9.0 Iron Level 27 L Total Iron Binding Capacity 315 Percent Iron Saturation 9 L Ferritin 349.0 H Total Bilirubin 3.3 H 1.0 # Direct Bilirubin 2.30 H 0.10 # Indirect Bilirubin 1.0 0.9 Aspartate Amino Transf (AST/SGOT) 201 H 122 H Alanine Aminotransferase (ALT/SGPT) 166 H 136 H Alkaline Phosphatase 86 93 Total Protein 8.4 H 7.4 # Albumin 4.4 3.8 Globulin 4.00 H 3.60 H Albumin/Globulin Ratio 1.10 1.05 Lipase 146 Bedside Urine pH (LAB) 6.5 Bedside Urine Protein (LAB) Negative Bedside Urine Glucose (UA) Negative Bedside Urine Ketones (LAB) Negative Bedside Urine Blood 1+ H Bedside Urine Nitrite (LAB) Negative Bedside Urine Leukocyte Esterase (L Negative Phosphorus Level 3.4 Magnesium Level 2.1 Medications Medications Current Medications Sodium Chloride (NS) 1,000 ml @ 100 mls/hr Q10H IV Last administered on t 23:14; Admin Dose 100 MLS/HR; Start 11/26/16 at 17:30 Ondansetron HCl (Zofran Inj) 4 mg Q6H PRN IV NAUSEA AND/OR VOMITING; Start at 17:30 Acetaminophen/ Hydrocodone Bitart ([place] (5/325)) 1 tab Q6H PRN PO MODERATE PAIN LEVEL 4-6; Start 11/26/16 at 17:30 Morphine Sulfate 2 mg 2 mg Q4H PRN IV SEVERE PAIN LEVEL 7-10; Start 11/26/16 at 17:30 Piperacillin Sod/ Tazobactam Sod (Zosyn 3.375gm/ 100 ml (Pmx)) 100 ml @ 200 mls /hr Q8 IVPB Last administered on 11/27/16 05:51; Admin Dose 200 MLS/HR; Start 11/26/16 at 21:00 Nitroglycerin (Nitroglycerin (Sl Tab) 0.4 Mg) 0.4 tab [id number] PRN SL CHEST PAIN; Start 11/26/16 at 23:30 Atorvastatin Calcium (Lipitor) 40 mg HS PO ; Start 11/27/16 at 21:00 Clopidogrel Bisulfate (plaVIX) 75 mg DAILY PO ; Start 11/27/16 at 09:00 Metoprolol Succinate (Toprol Xl) 12.5 mg DAILY PO ; Start 11/27/16 at 09:00 Docusate Sodium (Colace) 100 mg BID PO ; Start 11/27/16 at 09:00 CRISSY TALLEY NP Nov 27, 2016 11:05 CRISSY TALLEY NP Nov 27, 2016 11:05
[2016-11-27] MEDS: SOD CHLORIDE 0.9% 1,000 ML IV SCH ×2 (12:23→23:30)
--- NOTE | 2016-11-27 12:54 | PN ---
Date/Time of Note Date/Time of Note DATE: 11/27/16 TIME: 12:53 Assessment/Plan Lines/Catheters IV C[facility]ter Type (from [facility]): Peripheral IV Assessment/Plan Chief Complaint/Hosp Course Patient is a 56-year-old male who is 11 years status post coronary artery bypass. He presents with 4 days of right upper quadrant and midepigastric abdominal pain. Abdominal ultrasound shows gallstones. CT shows gallstones with gallbladder wall thickening and pericholecystic fluid suggestive of cholecystitis. Ductal dilatation is not noted. He has had no fevers, chills, or jaundice Problems: Assessment/Plan Patient awaiting ERCP today. Completion cholecystectomy tomorrow. Full informed consent regarding surgery and risks has been given Subjective 24 Hr Interval Summary Patient is clinically stable MRCP findings are noted Exam/Review of Systems Vital Signs Vitals Vital Signs Date Time Temp Pulse Resp B/P Pulse Ox O2 Delivery O2 Flow Rate FiO2 11/27/16 07:56 97.3 60 18 109/70 97 11/26/16 17:55 Room Air Intake and Output 11/26/16 11/26/16 11/27/16 15:00 23:00 07:00 Intake Total 100 ml 1750 ml Balance 100 ml 1750 ml Results Result Diagram: 11/27/16 0517 11/27/16 0512 PRASAD DYER MD Nov 27, 2016 12:54
[2016-11-27] MEDS ORDERED: IOHEXOL 300MG/ML 30 ML BTL ONE (15:41)
[2016-11-27] MEDS ORDERED: LIDOCAINE 2% (SDV) 5 ML INJ ONE (16:26)
[2016-11-27] MEDS ORDERED: PROPOFOL 20 ML ONE (16:26)
[2016-11-27] MEDS ORDERED: ETOMIDATE 20 MG INJ ONE (16:26)
[2016-11-27] MEDS ORDERED: MIDAZOLAM 1 MG/ML 2 ML INJ ONE (16:26)
[2016-11-27] MEDS ORDERED: FENTAnyl 50 MCG/ML VIAL ONE (16:26)
[2016-11-27] MEDS ORDERED: SUGAMMADEX SODIUM 200 MG/2 ML VIAL IV ONE (17:00)
[2016-11-27] MEDS ORDERED: LABETALOL HCL 20MG INJ ONE (17:05)
--- NOTE | 2016-11-27 17:06 | CONS ---
Date/Time of Note Date/Time of Note DATE: 11/27/16 TIME: 17:06 Assessment/Plan Assessment/Plan Additional Assessment/Plan Assessment: * Choledocholithiasis * Cholelithiasis/cholecystitis * Coronary artery disease/post CABG * Acute renal failure * Dyslipidemia Plan: * ERCP possible sphincterotomy and stone removal. Patient informed procedure including risks, benefits and alternatives. Agreeable to proceed * Further recommendations pending patient's clinical course as well as results of ERCP * Laparoscopic cholecystectomy in the near future Consultation Date/Type/Reason Admit Date/Time Reason for admission: Sent in by primary MD because of abdominal pain. Consultants 1. Solo Farmer MD, General Surgery. This is a 56-year-old Hebrew male with past medical history of essential hypertension, dyslipidemia, CAD status post coronary artery stenting and CABG who came to the emergency room with chief complaint of abdominal pain. The patient went to see his grain spouter because of abdominal pain. As per the patient's family who was at the bedside, he has known history of gallstones and has been having abdominal pain on and off for the past 1 year. During this episode he had abdominal pain for 4 days. The patient had an episode of nonbilious, nonbloody vomiting. The patient denied any fevers. The patient has been constipated. Although the patient has extensive cardiac history, he does not see any quality control analyst in the [place]. He had his CABG done in [place]. The patient is not compliant with his antiplatelet medications. The patient verbalized that he took Plavix last time approximately 10 days ago. In the emergency room, the patient was noticed to have transaminitis with hyperbilirubinemia. The patient was noticed to have microcytic, hypochromic anemia. The patient underwent a CT scan of the abdomen and pelvis that showed distended gallbladder with multiple gallstones and gallbladder wall thickening and pericholecystic inflammation, findings suggestive of cholecystitis. The CT scan also revealed mild dilatation of the common bile duct measuring up to [address] also showed small calcific densities along the expected course of the common bile duct concerning for choledocholithiasis. The gallbladder ultrasound showed calcified stones and sludge within the gallbladder, but no evidence of gallbladder wall thickening or pericholecystic fluid. He was treated with IV fluids, analgesics, and IV antibiotics in the emergency room. Date of Consultation: Nov 27, 2016 Type of Consultation: GI Reason for Consultation * Choledocholithiasis Hx of Present Illness 56-year-old man hospitalized with complaints of abdominal pain. Evaluation disclosed evidence of choledocholithiasis. The patient has been evaluated and cleared by cardiology and will undergo ERCP with sphincterotomy and hopefully stone removal. The patient understands procedure after explanation via translation service. He is agreeable to proceed. He has already been seen by consumer services consultant and laparoscopic cholecystectomy will probably take place after clearance of the biliary tree. Constitutional: no complaints Eyes: no complaints ENT: no complaints Respiratory: no complaints Cardiovascular: no complaints Gastrointestinal: constipation, nausea, pain, vomiting Genitourinary: no complaints Musculoskeletal: no complaints Skin: no complaints Neurologic: no complaints Endocrine: no complaints Lymphatic: no complaints Psychological: no complaints Immunologic: no complaints Past Medical History Medical History: coronary artery disease, high cholesterol, hypertension Past Surgical History Past Surgical Hx: coronary bypass surgery, other (Hemorrhoidectomy, back surgery, inguinal hernia repair.) Social History Alcohol Use: none Smoking Status: Never smoker Drug Use: none Exam/Review of Systems Vital Signs Vitals Vital Signs Date Time Temp Pulse Resp B/P Pulse Ox O2 Delivery O2 Flow Rate FiO2 11/27/16 14:48 97.9 60 16 110/63 97 11/26/16 17:55 Room Air Intake and Output 11/26/16 11/26/16 11/27/16 15:00 23:00 07:00 Intake Total 100 ml 1750 ml Balance 100 ml 1750 ml Exam PHYSICAL EXAMINATION: GENERAL: Well developed, well nourished, alert & oriented x 3, in no acute distress SKIN: No lesions, no stigmata chronic liver disease, no evidence of bleeding diathesis LYMPHATIC: No palpable lymphadenopathy. HEAD: Normocephalic, atraumatic, no tenderness. EYES: Pupils equal reactive to light and accommodation, full extraocular movements, sclera clear, non-icteric, no discharge. EARS/NOSE AND THROAT: Ears normal, nose normal, oropharynx normal, oral membranes well hydrated without lesions. NECK: Supple, no masses, thyroid normal, JVP within normal limits, carotids normal without bruits. CHEST: Inspection within normal limits, breasts grossly normal. CARDIOVASCULAR: Heart: Regular rate and rhythm, no murmurs, gallops or rubs. Peripheral pulses present within normal limits, no cyanosis, clubbing or edemas. No pulsatile abdominal mass RESPIRATORY: Lungs clear to auscultation and percussion, no wheezing, no rubs GASTROINTESTINAL AND LIVER: Abdomen: Soft, epigastric and right upper quadrant tenderness, non-distended, no hernias, no masses, no organomegaly, no ascites, no guarding, no rebound tenderness, normoactive bowel sounds. Rectal: Deferred. GENITOURINARY: [Male genitalia within normal limits.] MUSCULO-SKELETAL: Gait and station within normal limits, range of motion adequate. [NEUROLOGIC: Cranial nerves II-XII intact, Motor within normal limits, Sensory within normal limits. Reflexes within normal limits. PSYCHIATRIC: Alert & oriented x 3, mood/affect/judgement adequate] Results Result Diagram: 11/27/1617 11/27/16 0512 Results 24 hrs Laboratory Tests Test 11/27/16 05:12 11/27/16 05:17 Sodium Level 144 Potassium Level 4.1 Chloride Level 111 H Carbon Dioxide Level 25 Anion Gap 12 Blood Urea Nitrogen 14 Creatinine 1.30 H Glucose Level 85 Calcium Level 9.0 Phosphorus Level 3.4 Magnesium Level 2.1 Total Bilirubin 1.0 # Direct Bilirubin 0.10 # Indirect Bilirubin 0.9 Aspartate Amino Transf (AST/SGOT) 122 H Alanine Aminotransferase (ALT/SGPT) 136 H Alkaline Phosphatase 93 Total Protein 7.4 # Albumin 3.8 Globulin 3.60 H Albumin/Globulin Ratio 1.05 White Blood Count 3.6 #L Red Blood Count 6.09 Hemoglobin 11.7 L Hematocrit 37.4 L Mean Corpuscular Volume 61.4 L Mean Corpuscular Hemoglobin 19.2 L Mean Corpuscular Hemoglobin Concent 31.3 L Red Cell Distribution Width 16.9 H Platelet Count 245 Mean Platelet Volume 10.4 Neutrophils % 54.9 Lymphocytes % 30.1 Monocytes % 10.5 Eosinophils % 3.9 Basophils % 0.3 Nucleated Red Blood Cells % 0.0 Neutrophils # 2.0 Lymphocytes # 1.1 Monocytes # 0.4 Eosinophils # 0.1 Basophils # 0.0 Nucleated Red Blood Cells # 0.0 Medications Medications Current Medications Sodium Chloride (NS) 1,000 ml @ 100 mls/hr Q10H IV Last administered on t 12:23; Admin Dose 100 MLS/HR; Start 11/26/16 at 17:30 Ondansetron HCl (Zofran Inj) 4 mg Q6H PRN IV NAUSEA AND/OR VOMITING; Start at 17:30 Acetaminophen/ Hydrocodone Bitart ([place] (5/325)) 1 tab Q6H PRN PO MODERATE PAIN LEVEL 4-6; Start 11/26/16 at 17:30 Morphine Sulfate 2 mg 2 mg Q4H PRN IV SEVERE PAIN LEVEL 7-10; Start 11/26/16 at 17:30 Piperacillin Sod/ Tazobactam Sod (Zosyn 3.375gm/ 100 ml (Pmx)) 100 ml @ 200 mls /hr Q8 IVPB Last administered on 11/27/16t 14:23; Admin Dose 200 MLS/HR; Start 11/26/16 at 21:00 Nitroglycerin (Nitroglycerin (Sl Tab) 0.4 Mg) 0.4 tab [id number] PRN SL CHEST PAIN; Start 11/26/16 at 23:30 Atorvastatin Calcium (Lipitor) 40 mg HS PO ; Start 11/27/16 at 21:00; Status Future Hold Clopidogrel Bisulfate (plaVIX) 75 mg DAILY PO ; Start 11/27/16 at 09:00; Status Future Hold Metoprolol Succinate (Toprol Xl) 12.5 mg DAILY PO ; Start 11/27/16 at 09:00 Docusate Sodium (Colace) 100 mg BID PO ; Start 11/27/16 at 09:00 Ferrous Sulfate (Ferrous Sulfate (Ec)) 325 mg BID PO ; Start 11/27/16 at 21:00 FARZANEH GAN MD Nov 27, 2016 17:06
--- NOTE | 2016-11-27 17:23 | OPPN ---
Date/Time of Note Date/Time of Note DATE: 11/27/16 TIME: 17:06 Proc Note GI Procedure Date 11/27/16 Pre-procedure Diagnosis * Choledocholithiasis Post-procedure Diagnosis Assessment: * Choledocholithiasis * Post ERS * Post stone removal Plan: * Observation * Lap sedrick Procedure Performed: ERCP (+ERS + Stone removal) Surgeon see signature line Tower Equipment Repairer none Anesthesia Type: general Anesthesiologist: MARTÍN EDWARDS Tourniquet Time none EBL none Transfusion required none Grafts/Implants none Tubes/Drains none Complication(s) none Pt Condition post procedure: stable Disposition: PACU Indications: other (CBD) Procedure Description After informed consent, with the patient/relatives understanding the procedure, its indications, potential risks and complications, including but not limited to : allergic reaction, bleeding, perforation or infection, and after all pertinent questions were answered to the patients satisfaction, the patient/ relatives signed witnessed informed consent. Following this, premedication was administered slowly IV push under careful cardiovascular and respiratory monitoring with pulse oximetry, automatic blood pressure, and library media specialist. Once the sedative effect was achieved the patient was place in the prone position in the radiology special procedures suite; the side viewing panendoscope was introduced and advanced under visual control. Careful examination of the upper gastrointestinal tract, both on insertion as well as withdrawal of the instrument disclosed the following findings: Esophagus: The mucosa of the entire appears within normal limits. There is no evidence of esophagitis, varices, neoplasm or stricture. No Hiatal Hernia identified. Stomach: Upon entrance to the stomach air was insufflated, the gastric gaspar distended normally, the mucosa of the fundus, body and antrum of the stomach was carefully examined both head-on and on retroflexion, and shows no abnormalities. There is no evidence of gastritis, ulcers, or neoplasm. Pylorus: The pylorus appears patent and within normal limits, with no evidence of gastric outlet obstruction. Duodenum: The duodenal mucosa was carefully examined in the duodenal bulb as well as the second portion of the duodenum and appears unremarkable with no evidence of duodenitis, ulcer or neoplasm. Ampulla of vater: The ampulla of Vater was identified and carefully examined appearing within normal limits. Cannulation: At this point cannulation was accomplished with the following fluoroscopic findings: Pancreatogram: Avoided purposely Cholangiogram: The biliary tree appears somewhat dilated at 12 mm maximum diameter. A small 8 mm stone is seen floating in the distal common bile duct. A standard sphincterotomy measuring approximately 10 mm was performed without difficulty or evidence complication. Following this a 9-12 mm extraction balloon was utilized to sweep the biliary tree and obtain extraction of the stone which was documented photographically. A balloon cholangiogram was then obtained and shows no significant abnormalities. Of note the cystic duct appears patent. The instrument was then withdrawn the patient tolerated the procedure well and was transfer out of the endoscopy suite awake, and in good condition to continue to recover under observation. Copies To: CC: FARZANEH GAN MD, MORDO MD Nov 27, 2016 17:22
[2016-11-27] MEDS ORDERED: MEPERIDINE 25 MG INJ IV PRN (17:30)
[2016-11-27] MEDS ORDERED: LABETALOL HCL 20MG INJ IV PRN (17:30)
[2016-11-27] MEDS ORDERED: EPHEDrine SULFATE 50 MG/5 ML SYG IV PRN (17:30)
[2016-11-27] MEDS ORDERED: HYDROmorphONE (0.2 MG/ML) 10ML SYG IV PRN ×3 (17:30)
[2016-11-27] MEDS ORDERED: ONDANSETRON 4 MG INJ IV PRN (17:30)
[2016-11-27] MEDS ORDERED: METOCLOPRAMIDE 10 MG INJ IV PRN (17:30)
[2016-11-27] MEDS ORDERED: hydrALAzine 20 MG INJ IV PRN (17:30)
[2016-11-27] MEDS: ONDANSETRON 4 MG INJ IV PRN (17:34)
--- NOTE | 2016-11-27 17:46 | CONS ---
Date/Time of Note Date/Time of Note DATE: 11/27/16 TIME: 17:44 Assessment/Plan Assessment/Plan Chief Complaint/Hosp Course 56-year-old man hospitalized with complaints of abdominal pain. Evaluation disclosed evidence of choledocholithiasis. The patient has been evaluated and cleared by cardiology and will undergo ERCP with sphincterotomy and hopefully stone removal. The patient understands procedure after explanation via translation service. He is agreeable to proceed. He has already been seen by certified surgical technologist and laparoscopic cholecystectomy will probably take place after clearance of the biliary tree. Problems: Consultation Date/Type/Reason Admit Date/Time Assessment: * Choledocholithiasis * Cholelithiasis/cholecystitis * Coronary artery disease/post CABG * Acute renal failure * Dyslipidemia Plan: * ERCP possible sphincterotomy and stone removal. Patient informed procedure including risks, benefits and alternatives. Agreeable to proceed * Further recommendations pending patient's clinical course as well as results of ERCP * Laparoscopic cholecystectomy in the near future Hx of Present Illness 56-year-old man hospitalized with complaints of abdominal pain. Evaluation disclosed evidence of choledocholithiasis. The patient has been evaluated and cleared by cardiology and will undergo ERCP with sphincterotomy and hopefully stone removal. The patient understands procedure after explanation via translation service. He is agreeable to proceed. He has already been seen by certified surgical technologist and laparoscopic cholecystectomy will probably take place after clearance of the biliary tree. Constitutional: no complaints Eyes: no complaints ENT: no complaints Respiratory: no complaints Cardiovascular: no complaints Gastrointestinal: constipation, nausea, pain, vomiting Genitourinary: no complaints Musculoskeletal: no complaints Skin: no complaints Neurologic: no complaints Endocrine: no complaints Lymphatic: no complaints Psychological: no complaints Immunologic: no complaints Past Medical History Medical History: coronary artery disease, high cholesterol, hypertension Past Surgical History Past Surgical Hx: coronary bypass surgery, other (Hemorrhoidectomy, back surgery, inguinal hernia repair.) Social History Alcohol Use: none Smoking Status: Never smoker Drug Use: none Exam/Review of Systems Vital Signs Vitals Vital Signs Date Time Temp Pulse Resp B/P Pulse Ox O2 Delivery O2 Flow Rate FiO2 11/27/16 14:48 97.9 60 16 110/63 97 11/26/16 17:55 Room Air Intake and Output 11/26/16 11/26/16 11/27/16 15:00 23:00 07:00 Intake Total 100 ml 1750 ml Balance 100 ml 1750 ml Exam PHYSICAL EXAMINATION: GENERAL: Well developed, well nourished, alert & oriented x 3, in no acute distress SKIN: No lesions, no stigmata chronic liver disease, no evidence of bleeding diathesis LYMPHATIC: No palpable lymphadenopathy. HEAD: Normocephalic, atraumatic, no tenderness. EYES: Pupils equal reactive to light and accommodation, full extraocular movements, sclera clear, non-icteric, no discharge. EARS/NOSE AND THROAT: Ears normal, nose normal, oropharynx normal, oral membranes well hydrated without lesions. NECK: Supple, no masses, thyroid normal, JVP within normal limits, carotids normal without bruits. CHEST: Inspection within normal limits, breasts grossly normal. CARDIOVASCULAR: Heart: Regular rate and rhythm, no murmurs, gallops or rubs. Peripheral pulses present within normal limits, no cyanosis, clubbing or edemas. No pulsatile abdominal mass RESPIRATORY: Lungs clear to auscultation and percussion, no wheezing, no rubs GASTROINTESTINAL AND LIVER: Abdomen: Soft, epigastric and right upper quadrant tenderness, non-distended, no hernias, no masses, no organomegaly, no ascites, no guarding, no rebound tenderness, normoactive bowel sounds. Rectal: Deferred. GENITOURINARY: [Male genitalia within normal limits.] MUSCULO-SKELETAL: Gait and station within normal limits, range of motion adequate. [NEUROLOGIC: Cranial nerves II-XII intact, Motor within normal limits, Sensory within normal limits. Reflexes within normal limits. PSYCHIATRIC: Alert & oriented x 3, mood/affect/judgement adequate] Results Result Diagram: 11/27/16 0517 11/27/16 0512 Results 24 hrs Laboratory Tests Test 11/27/16 05:12 11/27/16 05:17 Sodium Level 144 Potassium Level 4.1 Chloride Level 111 H Carbon Dioxide Level 25 Anion Gap 12 Blood Urea Nitrogen 14 Creatinine 1.30 H Glucose Level 85 Calcium Level 9.0 Phosphorus Level 3.4 Magnesium Level 2.1 Total Bilirubin 1.0 # Direct Bilirubin 0.10 # Indirect Bilirubin 0.9 Aspartate Amino Transf (AST/SGOT) 122 H Alanine Aminotransferase (ALT/SGPT) 136 H Alkaline Phosphatase 93 Total Protein 7.4 # Albumin 3.8 Globulin 3.60 H Albumin/Globulin Ratio 1.05 White Blood Count 3.6 #L Red Blood Count 6.09 Hemoglobin 11.7 L Hematocrit 37.4 L Mean Corpuscular Volume 61.4 L Mean Corpuscular Hemoglobin 19.2 L Mean Corpuscular Hemoglobin Concent 31.3 L Red Cell Distribution Width 16.9 H Platelet Count 245 Mean Platelet Volume 10.4 Neutrophils % 54.9 Lymphocytes % 30.1 Monocytes % 10.5 Eosinophils % 3.9 Basophils % 0.3 Nucleated Red Blood Cells % 0.0 Neutrophils # 2.0 Lymphocytes # 1.1 Monocytes # 0.4 Eosinophils # 0.1 Basophils # 0.0 Nucleated Red Blood Cells # 0.0 Medications Medications Current Medications Sodium Chloride (NS) 1,000 ml @ 100 mls/hr Q10H IV Last administered on 12:23; Admin Dose 100 MLS/HR; Start 11/26/16 at 17:30 Ondansetron HCl (Zofran Inj) 4 mg Q6H PRN IV NAUSEA AND/OR VOMITING; Start at 17:30 Acetaminophen/ Hydrocodone Bitart ([place] (5/325)) 1 tab Q6H PRN PO MODERATE PAIN LEVEL 4-6; Start 11/26/16 at 17:30 Morphine Sulfate 2 mg 2 mg Q4H PRN IV SEVERE PAIN LEVEL 7-10; Start 11/26/16 at 17:30 Piperacillin Sod/ Tazobactam Sod (Zosyn 3.375gm/ 100 ml (Pmx)) 100 ml @ 200 mls /hr Q8 IVPB Last administered on 11/27/16 14:23; Admin Dose 200 MLS/HR; Start 11/26/16 at 21:00 Nitroglycerin (Nitroglycerin (Sl Tab) 0.4 Mg) 0.4 tab [id number] PRN SL CHEST PAIN; Start 11/26/16 at 23:30 Atorvastatin Calcium (Lipitor) 40 mg HS PO ; Start 11/27/16 at 21:00; Status Future Hold Clopidogrel Bisulfate (plaVIX) 75 mg DAILY PO ; Start 11/27/16 at 09:00; Status Future Hold Metoprolol Succinate (Toprol Xl) 12.5 mg DAILY PO ; Start 11/27/16 at 09:00 Docusate Sodium (Colace) 100 mg BID PO ; Start 11/27/16 at 09:00 Ferrous Sulfate (Ferrous Sulfate (Ec)) 325 mg BID PO ; Start 11/27/16 at 21:00 FARZANEH GAN MD Nov 27, 2016 17:06 Date of Consultation: Nov 27, 2016 Hx of Present Illness 56-year-old man hospitalized with complaints of abdominal pain. Evaluation disclosed evidence of choledocholithiasis. The patient has been evaluated and cleared by cardiology and will undergo ERCP with sphincterotomy and hopefully stone removal. The patient understands procedure after explanation via translation service. He is agreeable to proceed. He has already been seen by certified surgical technologist and laparoscopic cholecystectomy will probably take place after clearance of the biliary tree. Exam/Review of Systems Vital Signs Vitals Vital Signs Date Time Temp Pulse Resp B/P Pulse Ox O2 Delivery O2 Flow Rate FiO2 11/27/16 14:48 97.9 60 16 110/63 97 11/26/16 17:55 Room Air Intake and Output 11/26/16 11/26/16 11/27/16 15:00 23:00 07:00 Intake Total 100 ml 1750 ml Balance 100 ml 1750 ml Results Result Diagram: 11/27/16 0517 11/27/16 0512 Results 24 hrs Laboratory Tests Test 11/27/16 05:12 11/27/16 05:17 Sodium Level 144 Potassium Level 4.1 Chloride Level 111 H Carbon Dioxide Level 25 Anion Gap 12 Blood Urea Nitrogen 14 Creatinine 1.30 H Glucose Level 85 Calcium Level 9.0 Phosphorus Level 3.4 Magnesium Level 2.1 Total Bilirubin 1.0 # Direct Bilirubin 0.10 # Indirect Bilirubin 0.9 Aspartate Amino Transf (AST/SGOT) 122 H Alanine Aminotransferase (ALT/SGPT) 136 H Alkaline Phosphatase 93 Total Protein 7.4 # Albumin 3.8 Globulin 3.60 H Albumin/Globulin Ratio 1.05 White Blood Count 3.6 #L Red Blood Count 6.09 Hemoglobin 11.7 L Hematocrit 37.4 L Mean Corpuscular Volume 61.4 L Mean Corpuscular Hemoglobin 19.2 L Mean Corpuscular Hemoglobin Concent 31.3 L Red Cell Distribution Width 16.9 H Platelet Count 245 Mean Platelet Volume 10.4 Neutrophils % 54.9 Lymphocytes % 30.1 Monocytes % 10.5 Eosinophils % 3.9 Basophils % 0.3 Nucleated Red Blood Cells % 0.0 Neutrophils # 2.0 Lymphocytes # 1.1 Monocytes # 0.4 Eosinophils # 0.1 Basophils # 0.0 Nucleated Red Blood Cells # 0.0 Medications Medications Current Medications Sodium Chloride (NS) 1,000 ml @ 100 mls/hr Q10H IV Last administered on 12:23; Admin Dose 100 MLS/HR; Start 11/26/16 at 17:30 Ondansetron HCl (Zofran Inj) 4 mg Q6H PRN IV NAUSEA AND/OR VOMITING; Start at 17:30 Acetaminophen/ Hydrocodone Bitart ([place] (5/325)) 1 tab Q6H PRN PO MODERATE PAIN LEVEL 4-6; Start 11/26/16 at 17:30 Morphine Sulfate 2 mg 2 mg Q4H PRN IV SEVERE PAIN LEVEL 7-10; Start 11/26/16 at 17:30 Piperacillin Sod/ Tazobactam Sod (Zosyn 3.375gm/ 100 ml (Pmx)) 100 ml @ 200 mls /hr Q8 IVPB Last administered on 11/27/16 14:23; Admin Dose 200 MLS/HR; Start 11/26/16 at 21:00 Nitroglycerin (Nitroglycerin (Sl Tab) 0.4 Mg) 0.4 tab [id number] PRN SL CHEST PAIN; Start 11/26/16 at 23:30 Atorvastatin Calcium (Lipitor) 40 mg HS PO ; Start 11/27/16 at 21:00; Status Future Hold Clopidogrel Bisulfate (plaVIX) 75 mg DAILY PO ; Start 11/27/16 at 09:00; Status Future Hold Metoprolol Succinate (Toprol Xl) 12.5 mg DAILY PO ; Start 11/27/16 at 09:00 Docusate Sodium (Colace) 100 mg BID PO ; Start 11/27/16 at 09:00 Ferrous Sulfate (Ferrous Sulfate (Ec)) 325 mg BID PO ; Start 11/27/16 at 21:00 FARZANEH GAN MD Nov 27, 2016 17:46
--- NOTE | 2016-11-27 17:50 | RADRPT ---
PROCEDURE: Intraoperative imaging for ERCP with fluoroscopy. CLINICAL INDICATION: Right upper quadrant pain. Intraoperative. TECHNIQUE: 5 images of the right upper quadrant of the abdomen were obtained in the operating room with an image intensifier. No radiologist was in attendance. 86 second of fluoroscopy time was us ed. COMPARISON: MRCP dated 11/26/2016. FINDINGS: Images demonstrate the endoscope in position and contrast into common bile duct. Filling defects are present in the common bile duct consistent with stones or gas bubbles. The common bile duct is dila melinda. The pancreatic duct was not injected. IMPRESSION: 1. ERCP as described above. RPTAT: QQ .George Caro MD, MD Date Time Electronically viewed and signed by .George Caro MD, on 11/27/2016 17:50 .R/
[2016-11-27] MEDS ORDERED: ATORVASTATIN 40 MG TAB PO SCH (21:00)
[2016-11-27] MEDS: FERROUS SULFATE (EC) 325 MG TAB PO SCH (21:53)
[2016-11-28] VITALS (26 sets, daily range): BP systolic 100–134; BP diastolic 59–77; PULSE 68–82; RESP 16–23
--- NOTE | 2016-11-28 00:14 | RADRPT ---
Vent Rate: 60 bpm RR Interval: 0 msec AK Interval: 182 msec QRS Duration: 96 msec QT Interval: 422 msec QTC Interval: 422 msec P-R-T [place]: 60 - -12 - 0 degrees Normal sinus rhythm Septal infarct , age undetermined T wave abnormality, consider anterior ischemia Abnormal ECG Electronically Signed By: Sergio Bui [id number]
--- NOTE | 2016-11-28 02:10 | CONS ---
DATE OF ADMISSION: 11/26/2016 DATE OF CONSULTATION: 11/27/2016 REFERRING PHYSICIAN: Donna Franklin MD REASON FOR CONSULTATION: Cardiology evaluation prior to ERCP procedure. HISTORY OF PRESENT ILLNESS: The patient is a 56-year-old [place] male who was admitted to [facility] for abdominal pain, nausea, and right upper quadrant discomfort. The patient was diagnosed with acute cholecystitis, with cholelithiasis and partial obstruction of the choledochus by gallstones. There was suspicion of infection and empiric antibiotics were started. The patient is scheduled for ERCP today for therapeutic relief of choledocholithiasis and bile obstruction. In the same, the patient has a documented chronic history for which cardiac evaluation was requested prior to the procedure, as well as risk assessment. PAST MEDICAL HISTORY/COMORBID CONDITIONS: 1. Hypertension. 2. Hypercholesterolemia. 3. Coronary artery disease. 4. Remote history of myocardial infarction and repeated revascularization in his [place] origin initially with stents and subsequently with triple aortocoronary bypass surgery. PAST SURGICAL HISTORY: 1. Aortocoronary bypass surgery. 2. Hemorrhoidectomy. 3. Low back surgery and inguinal hernia repair. REVIEW OF SYSTEMS: CONSTITUTIONAL: No complaints. The patient at this times feels slightly weak, has loss of appetite and has mild nausea. HEENT: No complaints. RESPIRATORY: No complaints CARDIOVASCULAR: The patient denies shortness of breath with exertion or at rest. He denies chest pain, diaphoresis. He denies need for sublingual nitroglycerin. He denies palpitations, loss of consciousness, dyspnea on exertion, orthopnea. GASTROINTESTINAL: Constipation, nausea, pain, vomiting. GENITOURINARY: No complaints. MUSCULOSKELETAL: No complaints. SKIN: Unremarkable with no complaints. NEUROLOGIC: Unremarkable with no complaints. ENDOCRINE: Unremarkable with no complaints. LYMPHATICS: Unremarkable with no complaints. SOCIAL HISTORY: The patient lives at home with family. He and close family speak only Norwegian and cannot communicate in Dutch. He has apparently no history of alcohol use or drug use. Smoking status is entered as none (?). The patient is unemployed. HOME MEDICATIONS: He only occasionally takes aspirin. There is no evidence of regular treatment for hypertension or hyperlipidemia. PHYSICAL EXAMINATION: GENERAL: The patient is an older overweight (non obese) [place] male in no acute distress. VITAL SIGNS: Height 5 feet 7 inch, weight 79 pounds. Blood pressure is 110/63 mmHg, heart rate 60 beats per minute, regular, respiratory rate 16 per minute, unlabored. The patient is afebrile; temperature is 97.9 degrees. SKIN: Warm and dry, not clammy. HEENT: Normocephalic. Eyes: PERRL. EOMI. Conjunctivae and eyelids are normal. Sclerae anicteric. Oral mucosa moist with no cyanosis. NECK: Supple without thyromegaly or lymphadenopathy. Trachea is midline. No jugular vein distention. Carotid pulses are normal and equal with no bruits. CHEST: Symmetric with equal expansion. LUNGS: Clear to auscultation bilaterally with no wheezes or rales. ABDOMEN: Generally soft with some tenderness in the right upper quadrant. Bowel sounds are present. EXTREMITIES: No edema, cyanosis or clubbing. Peripheral pulses are normal throughout. DIAGNOSTICS: EKG: Sinus rhythm, evidence of old septal VT with no other significant abnormalities. Echocardiogram (performed at bedside) documents normal size cardiac chambers, borderline normal left ventricular systolic function with an ejection of 50 to 55 percent. The very apex is akinetic with possible some calcification of the apical septum. There is no intracavitary thrombus. Cardiac valves have minimal calcification and function normally. Whole cardiac chambers appear normal in size. There is no pericardial effusion. The inferior vena cava is within normal limits and collapses without Valsalva maneuver. ASSESSMENT: The patient is a middle-age male who has an established atherosclerotic coronary artery disease. He suffered an acute myocardial infarction in the territory of mid to distal left anterior descending for which he was treated at that time (approximately 14 years ago) with implantation of two stents. About a year later, he had recurrent symptoms (angina) and he had triple bypass surgery. He has been stable since and despite noncompliance with medications he has had no other events or admissions. In fact, he has not seen a print production manager for the past 10 years. CONCLUSION: The patient has stable coronary artery disease and history of old anteroseptal myocardial infarction with very mild left ventricular dysfunction and no symptoms. At this time, he is a low risk (possibly slightly above low) for periprocedural cardiac complications during the ERCP. Thank you very much for asking me to participate in the evaluation of this gentleman. Dictated By: Silvano Abebe MD /tracey/marilyn /Document#: [id number]
[2016-11-28 05:36] LABS: ABNORMAL IP MESSAGE 1; BASOPHILS % 0.2 % (0.0-2.0); EOSINOPHILS # 0.1 10^3/ul (0.0-0.5); EOSINOPHILS % 2.1 % (0.0-7.0); HEMATOCRIT 35.6 % (42.0-52.0); HEMOGLOBIN 11.1 g/dl (14.0-18.0); LYMPHOCYTES # 1.1 10^3/ul (0.8-2.9); LYMPHOCYTES % 26.1 % (15.0-51.0); MEAN CORPUSCULAR HEMOGLOBIN 19.1 pg (29.0-33.0); MEAN CORPUSCULAR HGB CONC 31.2 g/dl (32.0-37.0); MEAN CORPUSCULAR VOLUME 61.4 fl (82.0-101.0); MEAN PLATELET VOLUME 10.2 fl (7.4-10.4); MONOCYTE # 0.5 10^3/ul (0.3-0.9); MONOCYTES % 11.2 % (0.0-11.0); NEUTROPHIL # 2.5 10^3/ul (1.6-7.5); NEUTROPHILS % 60.2 % (39.0-77.0); PLATELET COUNT 243 10^3/UL (140-415); POSITIVE DIFF @See below; RED CELL DISTRIBUTION WIDTH 15.5 % (11.5-14.5); WHITE BLOOD COUNT 4.2 10^3/ul (4.8-10.8)
[2016-11-28] MEDS: SOD CHLORIDE 0.9% 1,000 ML IV SCH ×2 (05:40→21:44)
[2016-11-28] MEDS: PIPER-TAZO 3.375 GM IV (PMX) 100 ML IVPB SCH ×3 (05:40→22:13)
[2016-11-28 05:56] LABS: ADD UMIC YES; UR ASCORBIC ACID NEGATIVE (NEGATIVE); UR BILIRUBIN (Dip) NEGATIVE (NEGATIVE); UR BLOOD (Dip) 1+ mg/dL (NEGATIVE); UR CLARITY CLEAR (CLEAR); UR COLOR AMBER (YELLOW); UR GLUCOSE (Dip) NEGATIVE (NEGATIVE); UR KETONES (Dip) TRACE mg/dL (NEGATIVE); UR LEUKOCYTE ESTERASE (Dip) NEGATIVE Leu/ul (NEGATIVE); UR NITRITE (Dip) NEGATIVE (NEGATIVE); UR RBC 5 /HPF (0-5); UR SPECIFIC GRAVITY (Dip) 1.035 (1.003-1.030); UR TOTAL PROTEIN (Dip) NEGATIVE (NEGATIVE); UR UROBILINOGEN (Dip) 1+ mg/dL (NEGATIVE)
[2016-11-28 06:13] LABS: MAGNESIUM 1.8 mg/dl (1.7-2.5); PHOSPHORUS 3.4 mg/dl (2.5-4.9)
[2016-11-28 06:25] LABS: ALBUMIN 3.3 g/dl (3.3-4.9); ALBUMIN/GLOBULIN RATIO 1.1; BILIRUBIN,INDIRECT 0.7 mg/dl (0-1.1); BILIRUBIN,TOTAL 0.7 mg/dl (0.2-1.3); CREATININE 1.11 mg/dl (0.61-1.24); POTASSIUM 4.2 mmol/L (3.5-5.1); TOTAL PROTEIN 6.3 g/dl (6.1-8.1)
[2016-11-28] MEDS ORDERED: ROCURONIUM 50 MG INJ ONE ×2 (07:00→17:30)
[2016-11-28] MEDS: FERROUS SULFATE (EC) 325 MG TAB PO SCH ×2 (08:51→21:00)
[2016-11-28] MEDS: DOCUSATE SODIUM 100 MG CAP PO SCH ×2 (08:51→21:00)
[2016-11-28] MEDS: METOPROLOL (XL) 25 MG TAB PO SCH (08:51)
[2016-11-28] MEDS: ONDANSETRON 4 MG INJ IV PRN (08:51)
[2016-11-28] MEDS: morphine 2 MG INJ IV PRN ×2 (10:01→21:39)
--- NOTE | 2016-11-28 13:25 | PN ---
Date/Time of Note Date/Time of Note DATE: 11/28/16 TIME: 13:24 Assessment/Plan VTE Prophylaxis VTE Prophylaxis Intervention: SCD's Lines/Catheters IV [facility] (from [facility] Peripheral IV Assessment/Plan Chief Complaint/Hosp Course 1. Cholelithiasis with possible underlying choledocholithiasis. MRCP findings are equivocal for acute cholecystitis. MRCP also showing dilated intrahepatic and extrahepatic biliary ductal dilatation with a suspected 0.2 cm nonobstructing common bile duct stone in the suprapancreatic segment of the common bile duct. S/P ERCP on 11/27/2016 with endoscopic sphincterotomy and stone removal. Plan for cholecystectomy. 2. Transaminitis with hyperbilirubinemia. Most probably secondary to #1. Management as per #1. Avoid hepatotoxic medications. 3. Acute nonoliguric kidney injury in a patient with an unknown baseline creatinine. Resolved. Patient denied any history of renal issues. The patient will be hydrated adequately. Nephrotoxic drugs will be used with caution. 4. Hyperkalemia. Most probably secondary to underlying acute kidney injury. Resolved. 5. CAD. History of coronary stents and CABG. The patient's antiplatelet therapy will be put on hold because of possible surgical intervention. Continue beta-blockers. Patient's 12-lead EKG showing T-wave inversion in leads aVF, V1 , V2, V3, and V4. Status post cardiology evaluation. 6. Dyslipidemia. Will hold the patient's antilipemic medications as of now because of underlying transaminitis and hyperbilirubinemia. 7. Microcytic, hypochromic anemia. Iron panel showing low iron saturation and low iron with high ferritin. Monitor H&H closely. To be started on oral iron supplements once the patient is able to tolerate oral intake. 8. Fluids, electrolytes, and nutrition. IV fluids. N.p.o. except for medications. 9. DVT prophylaxis. Bilateral sequential compression devices. 10. Plan. Continue IV hydration. Continue pain control. Await cholecystectomy. Discussed with Dr. Franklin. Problems: Subjective 24 Hr Interval Summary Free Text/Dictation Denies any abdominal pain. Exam/Review of Systems Vital Signs Vitals Vital Signs Date Time Temp Pulse Resp B/P Pulse Ox O2 Delivery O2 Flow Rate FiO2 11/28/16 08:00 98.7 71 20 119/72 98 11/27/16 17:52 Room Air 11/27/16 17:12 8.0 Intake and Output 11/27/16 11/27/16 11/28/16 15:00 23:00 07:00 Intake Total 650 ml 100 ml 1620 ml Balance 650 ml 100 ml 1620 ml Exam General: Adequately build 56 year-old male lying in bed in no apparent distress. HEENT: Normocephalic, atraumatic. Eyes: Anicteric sclerae, conjunctivae clear. ENT: Nasal septum midline, oral mucosa moist. Neck supple. Respiratory: Bilaterally clear breath sounds. No use of accessory muscles of respiration. No adventitious breath sounds. Cardiovascular: S1, S2 heard. No murmurs or gallops. Abdomen: Soft and nondistended. Bowel sounds positive in all 4 quadrants. Minimal epigastric tenderness. No guarding. Genitourinary: Deferred. Extremities: No cyanosis, no clubbing, no edema. Peripheral pulses palpable. Neurologic: Cranial nerves II through XII grossly intact. The patient is awake, alert, and oriented. Skin: Normal skin turgor. No skin rashes. Results Result Diagram: 11/28/16 0514 11/28/16 0514 Results 24 hrs Laboratory Tests Test 11/27/16 23:30 11/28/16 05:14 11/28/16 10:20 Urine Color ARA Urine Clarity CLEAR Urine pH 5.0 Urine Specific [place] 1.035 H Urine Ketones TRACE A Urine Nitrite NEGATIVE Urine Bilirubin NEGATIVE Urine Urobilinogen 1+ H Urine Leukocyte Esterase NEGATIVE Urine Microscopic RBC 5 Urine Microscopic WBC 2 Urine Hemoglobin 1+ H Urine Glucose NEGATIVE Urine Total Protein NEGATIVE White Blood Count 4.2 L Red Blood Count 5.80 Hemoglobin 11.1 L Hematocrit 35.6 L Mean Corpuscular Volume 61.4 L Mean Corpuscular Hemoglobin 19.1 L Mean Corpuscular Hemoglobin Concent 31.2 L Red Cell Distribution Width 15.5 H Platelet Count 243 Mean Platelet Volume 10.2 Neutrophils % 60.2 Lymphocytes % 26.1 Monocytes % 11.2 H Eosinophils % 2.1 Basophils % 0.2 Nucleated Red Blood Cells % 0.0 Neutrophils # 2.5 Lymphocytes # 1.1 Monocytes # 0.5 Eosinophils # 0.1 Basophils # 0.0 Nucleated Red Blood Cells # 0.0 Sodium Level 143 Potassium Level 4.2 Chloride Level 109 Carbon Dioxide Level 26 Anion Gap 12 Blood Urea Nitrogen 15 Creatinine 1.11 Glucose Level 83 Calcium Level 9.0 Phosphorus Level 3.4 Magnesium Level 1.8 Total Bilirubin 0.7 Direct Bilirubin 0.00 Indirect Bilirubin 0.7 Aspartate Amino Transf (AST/SGOT) 79 H Alanine Aminotransferase (ALT/SGPT) 98 H Alkaline Phosphatase 104 Total Protein 6.3 # Albumin 3.3 Globulin 3.00 Albumin/Globulin Ratio 1.10 Stool Occult Blood NEGATIVE Medications Medications Current Medications Sodium Chloride (NS) 1,000 ml @ 100 mls/hr Q10H IV Last administered on 05:40; Admin Dose 100 MLS/HR; Start 11/26/16 at 17:30 Ondansetron HCl (Zofran Inj) 4 mg Q6H PRN IV NAUSEA AND/OR VOMITING Last administered on 11/28/16 08:51; Admin Dose 4 MG; Start 11/26/16 at 17:30 Acetaminophen/ Hydrocodone Bitart ([place] (5/325)) 1 tab Q6H PRN PO MODERATE PAIN LEVEL 4-6; Start 11/26/16 at 17:30 Morphine Sulfate 2 mg 2 mg Q4H PRN IV SEVERE PAIN LEVEL 7-10 Last administered on 11/28/16 10:01; Admin Dose 2 MG; Start 11/26/16 at 17:30 Piperacillin Sod/ Tazobactam Sod (Zosyn 3.375gm/ 100 ml (Pmx)) 100 ml @ 200 mls /hr Q8 IVPB Last administered on 11/28/16 05:40; Admin Dose 200 MLS/HR; Start 11/26/16 at 21:00 Nitroglycerin (Nitroglycerin (Sl Tab) 0.4 Mg) 0.4 tab [id number] PRN SL CHEST PAIN; Start 11/26/16 at 23:30 Atorvastatin Calcium (Lipitor) 40 mg HS PO ; Start 11/27/16 at 21:00; Status Future Hold Clopidogrel Bisulfate (plaVIX) 75 mg DAILY PO ; Start 11/27/16 at 09:00; Status Future Hold Metoprolol Succinate (Toprol Xl) 12.5 mg DAILY PO Last administered on 08:51; Admin Dose 12.5 MG; Start 11/27/16 at 09:00 Docusate Sodium (Colace) 100 mg BID PO Last administered on 11/27/16 21:53; Admin Dose 100 MG; Start 11/27/16 at 09:00 Ferrous Sulfate (Ferrous Sulfate (Ec)) 325 mg BID PO Last administered on 21:53; Admin Dose 325 MG; Start 11/27/16 at 21:00 CRISSY TALLEY NP Nov 28, 2016 13:25
--- NOTE | 2016-11-28 14:07 | QN ---
Documentation Comment Hospitalist service physician supervisory note Pt seen today. Unclear why cardiology service saw pt today as I had cancelled this consult yesterday and discussed the cancellation with the cardiology service. Pt without chest pain and able to climb a flight of stairs without stopping. Actually had a NM stress test in [place] 7 mos ago notable only for a small apical area with an irreversible perfusion deficit. As the data security coordinator mentioned in his note, no further preoperative testing is indicated. Regarding pt's home meds, in addition to atorva 40, plavix 1-2x/week (pt states this was what he was told to take in [place]), he also takes fenofibrate 200 mg daily, Nitrocardin 3.2 mg TID, Nicorandil 5 mg BID (this medication is not available in the [place]), and toprol XL 23.75 mg BID. Of note, pt also had an EKG in [facility] in March with showed TWIs in leads v1--> v4 and avR, very similar to EKG from this admission Consider starting long acting nitrate repeat UA again shows microhematuria. Pt should be referred to a urologist at discharge for further eval FOBT negative, pt should see PCP for STEPHANY eval will place CM cs for new PCP and data security coordinator for outpatient Pt also reports occ palliations attributed to stress. Will place on tele here, though suspect episodic PVCs DONNA DEVINE MD Nov 28, 2016 14:07
--- NOTE | 2016-11-28 16:40 | QN ---
Documentation Comment patient currently in operating room FERMIN BANUELOS NP Nov 28, 2016 16:40
[2016-11-28] MEDS ORDERED: BUPIVACAINE 0.25% (MPF) 30 ML INJ ONE ×2 (16:46→18:08)
[2016-11-28] MEDS ORDERED: PROPOFOL 20 ML ONE ×2 (17:30→19:50)
[2016-11-28] MEDS ORDERED: FENTAnyl 50 MCG/ML VIAL ONE ×2 (17:30→18:48)
[2016-11-28] MEDS ORDERED: MIDAZOLAM 1 MG/ML 2 ML INJ ONE (17:30)
[2016-11-28] MEDS ORDERED: CEFAZOLIN 1 GM INJ ONE (17:30)
[2016-11-28] MEDS ORDERED: ROPIVACAINE 0.2% 20 ML VIAL ONE (17:34)
--- NOTE | 2016-11-28 18:30 | RADRPT ---
Echocardiogram Report Patient Name: JESSENIA BOYLE Gender: Male Date: 1960 Study Date: 27-Nov-2016 Spindle Repairer: Penny [facility] Location: I Ref. Physician: ISAIAH VERAS Quality: Adequate Procedures: Transthoracic echocardiogram with complete 2D, M-Mode, and doppler examination. Indications: Pre-op. 2D/M Mode Doppler Measurement Value Normal Ranges Measurement Value Normal Ranges LVIDd 2D 4.2 3.5 - 5.6 cm AV Peak Pranav 1.4 m/sec LVIDs 2D 3.0 2.1 - 4.1 cm AV Peak PG 8.0 mmHg FS 2D 27.2 % LVOT Peak Pranav 0.9 m/sec LVPWd 2D 1.2 0.6 - 1.1 cm LVOT Peak PG 3.0 mmHg IVSd 2D 1.1 0.6 - 1.1 cm MV E Peak Pranav 0.9 m/sec IVS/LVPW 2D 0.9 MV A Peak Pranav 0.9 m/sec AoR Diam 2D 2.8 2.0 - 3.7 cm MV E/A 0.9 LA/Ao 2D 1 0 - 1 MV Decel Time 197 msec EDV 2D 71.5 cm3 MV E/A 0.9 ESV 2D 27.5 cm3 LA Dimen 2D 4.1 2.3 - 4.0 cm Findings Left Ventricle: Normal left ventricular systolic function. Normal left ventricular cavity size. Left ventricular wall thickness upper limits of normal. Ejection fraction is visually estimated at 4550 %. Tissue Doppler/Mitral Doppler indices are consistent with impaired relaxation (Stage I diastolic dysfunction). These segments of the LV are hypokinetic mid anterior segment. Right Ventricle: Normal right ventricular size. Normal right ventricular systolic function. Left Atrium: There is mild enlargement of left atrium. Right Atrium: The right atrium is normal in size. Mitral Valve: Normal appearance and function of the mitral valve with trace physiologic regurgitation. Aortic Valve: Aortic cusps appear mildly calcified. Trace aortic valve regurgitation. Tricuspid Valve: Normal appearance of the tricuspid valve. Unable to obtain RVSP due to minimal presence of tricuspid regurgitation. There is trace tricuspid regurgitation. Pulmonic Valve: Pulmonic valve not well visualized. There is trace pulmonic regurgitation. Pericardium: Normal pericardium with no significant pericardial effusion. Aorta: Normal aortic root. IVC: Normal size and normal respiratory collapse consistent with normal right atrial pressure. Conclusions 1.Normal left ventricular systolic function. Normal left ventricular cavity size. Left ventricular wall thickness upper limits of normal. Ejection fraction is visually estimated at 45-50 %. Tissue Doppler/Mitral Doppler indices are consistent with impaired relaxation (Stage I diastolic dysfunction). These segments of the LV are hypokinetic mid anterior segment. 2.There is mild enlargement of left atrium. 3.Normal appearance and function of the mitral valve with trace physiologic regurgitation. 4.Aortic cusps appear mildly calcified. Trace aortic valve regurgitation. 5.Normal appearance of the tricuspid valve. Unable to obtain RVSP due to minimal presence of tricuspid regurgitation. There is trace tricuspid regurgitation. 6.Pulmonic valve not well visualized. There is trace pulmonic regurgitation. Electronically Signed By: Óscar Christensen 28-Nov-2016 18:29:46 -0700 Patient Name: JESSENIA BOYLE Study Date: 27-Nov-2016 [id number]
[2016-11-28] MEDS ORDERED: ONDANSETRON 4 MG INJ ONE (19:05)
[2016-11-28] MEDS ORDERED: METOCLOPRAMIDE 10 MG INJ ONE (19:05)
[2016-11-28] MEDS ORDERED: SUGAMMADEX SODIUM 200 MG/2 ML VIAL IV ONE (19:05)
[2016-11-28] MEDS ORDERED: DEXAMETHASONE 4 MG/ML 1 ML INJ ONE (19:05)
[2016-11-28] MEDS ORDERED: METOPROLOL 5 MG INJ ONE (19:08)
[2016-11-28] MEDS ORDERED: ACETAMINOPHEN 1000MG/100ML IV 100 ML ONE (19:09)
[2016-11-28] MEDS ORDERED: FENTAnyl 50 MCG/ML VIAL IV PRN ×2 (19:30)
[2016-11-28] MEDS ORDERED: ONDANSETRON 4 MG INJ IV PRN ×2 (19:30→20:00)
[2016-11-28] MEDS ORDERED: MEPERIDINE 25 MG INJ IV PRN (19:30)
[2016-11-28] MEDS ORDERED: HYDROmorphONE (0.2 MG/ML) 10ML SYG IV PRN ×3 (19:30)
[2016-11-28] MEDS ORDERED: ALBUMIN HUMAN 5% 250 ML IV PRN (19:30)
[2016-11-28] MEDS ORDERED: DIPHENHYDRAMINE 50 MG INJ IV PRN (19:30)
[2016-11-28] MEDS ORDERED: METOCLOPRAMIDE 10 MG INJ IV PRN (19:30)
[2016-11-28] MEDS ORDERED: EPHEDrine SULFATE 50 MG/5 ML SYG IV PRN (19:30)
[2016-11-28] MEDS ORDERED: LABETALOL HCL 20MG INJ IV PRN (19:30)
[2016-11-28] MEDS ORDERED: MEPERIDINE 100 MG INJ ONE (19:47)
--- NOTE | 2016-11-28 19:56 | OPR ---
Date/Time of Note Date/Time of Note DATE: 11/28/16 TIME: 19:47 Operative Report Preoperative Diagnosis Acute cholecystitis Postoperative Diagnosis Acute and chronic cholecystitis with extensive adhesions in the right upper quadrant Operation Performed 1. Laparoscopic cholecystectomy 2. Placement of drain Surgeon Prasad Dyer MD Anesthesia Type: general Anesthesiologist: ZINA DE LA FUENTE MD Estimated Blood Loss: 50 - 100 ml's Transfusion Required: no Specimens Gallbladder Grafts/Implants: none Tubes/Drains #19 Round Thony drain Pt Condition Post Procedure: stable Disposition: PACU Indications Symptomatic Operative\Procedure Findings Acutely and chronically inflamed bladder with intense desmoplastic reaction in right upper quadrant Procedure Description After satisfactory general endotracheal anesthesia was achieved, the abdomen was prepped and draped in the usual fashion. The abdomen was insufflated with carbon dioxide through an umbilical Veress needle to 15 mmHg pressure. The Veress needle was removed and the umbilical incision extended to 5 mm through which a 5 mm trocar was placed. A 5 mm 0 lens was placed. Laparoscopy showed that the omentum was fused to the entire edge of the right lobe of the liver. The gallbladder was not immediately identifiable. Under direct visualization a 12 mm epigastric trocar was placed as well as 2 5 mm right lateral abdominal trochars. The omentum was from the edge of the right lobe of liver with electrocautery dissection exposing the tip of the dome of the gallbladder. This was able to be grasped, and omental adhesions to the liver and gallbladder were taken down with sequential blunt and electrocautery dissection. The dome of the gallbladder could not be securely grasped. Omental adhesions were taken down to the level of the distal gallbladder. Distal gallbladder was almost fused to the duodenum. These 2 structures were with careful sharp dissection. This allowed the duodenum to return to its normal position, and the distal gallbladder was able to be grasped and retracted inferolaterally. The hepatoduodenal ligament was also intensely scarred. Her full dissection in this area identified the cystic duct. The duct was able to be dissected circumferentially between the gallbladder and the now visualized common duct. The cystic duct was then triply hemoclipped and divided high at the junction of the gallbladder and the cystic duct. The cystic artery was identified immediately behind this. This was triply hemoclipped and divided. The peritoneal attachments of the gallbladder was divided over clip. The gallbladder was then dissected from below using electrocautery dissection and placed intact into an Endo Catch removed via the epigastric route. Total hemostasis was achieved with electrocautery of the liver bed. Irrigant now returned clear. Because of the marked inflammation and reaction it was elected to place a drain. #19 round Thony drain was placed draining the right subhepatic space and gallbladder fossa, and exited through the lateralmost puncture site where it was secured to the skin with a 2-0 nylon. The fascia of the epigastrium was closed with a 0 Vicryl placed with the assistance of a laparoscopic closure device. The abdomen was then desufflated and all trochars were removed. 2 more fascial sutures of 0 Vicryl were placed. Skin punctures were infiltrated with 30 cc of 0.25% Marcaine, and closed with lianet. Sponge and needle counts were reported as correct 2. PRASAD DYER MD Nov 28, 2016 19:56
[2016-11-28] MEDS ORDERED: morphine 2 MG INJ IV PRN (20:00)
[2016-11-28] MEDS: FENTAnyl 50 MCG/ML VIAL IV PRN ×2 (20:20→20:31)
[2016-11-29] VITALS (12 sets, daily range): BP systolic 106–155; BP diastolic 60–90; PULSE 75–89; RESP 18–20
[2016-11-29] MEDS: HYDROmorphONE 1 MG/ML SYG IV PRN ×3 (01:35→13:18)
[2016-11-29] MEDS: PIPER-TAZO 3.375 GM IV (PMX) 100 ML IVPB SCH ×3 (05:27→21:07)
[2016-11-29] MEDS: SOD CHLORIDE 0.9% 1,000 ML IV SCH ×2 (05:28→13:18)
[2016-11-29 08:52] LABS: ABNORMAL IP MESSAGE 1; HEMATOCRIT 37.6 % (42.0-52.0); HEMOGLOBIN 11.5 g/dl (14.0-18.0); LYMPHOCYTES # 0.6 10^3/ul (0.8-2.9); LYMPHOCYTES % 9.2 % (15.0-51.0); MEAN CORPUSCULAR HEMOGLOBIN 18.8 pg (29.0-33.0); MEAN CORPUSCULAR HGB CONC 30.6 g/dl (32.0-37.0); MEAN CORPUSCULAR VOLUME 61.3 fl (82.0-101.0); MEAN PLATELET VOLUME 10.1 fl (7.4-10.4); MONOCYTE # 0.5 10^3/ul (0.3-0.9); NEUTROPHIL # 5.5 10^3/ul (1.6-7.5); NEUTROPHILS % 82.4 % (39.0-77.0); PLATELET COUNT 268 10^3/UL (140-415); POSITIVE DIFF @See below; RED BLOOD COUNT 6.13 10^6/ul (4.70-6.10); RED CELL DISTRIBUTION WIDTH 15.6 % (11.5-14.5); WHITE BLOOD COUNT 6.7 10^3/ul (4.8-10.8)
[2016-11-29] MEDS: DOCUSATE SODIUM 100 MG CAP PO SCH ×2 (08:53→21:08)
[2016-11-29] MEDS: FERROUS SULFATE (EC) 325 MG TAB PO SCH ×2 (08:54→21:09)
[2016-11-29] MEDS: METOPROLOL (XL) 25 MG TAB PO SCH (08:54)
[2016-11-29] MEDS: morphine 2 MG INJ IV PRN (08:55)
[2016-11-29 09:06] LABS: MAGNESIUM 1.9 mg/dl (1.7-2.5)
[2016-11-29 09:11] LABS: ALBUMIN 3.6 g/dl (3.3-4.9); ALBUMIN/GLOBULIN RATIO 1.12; BILIRUBIN,INDIRECT 0.6 mg/dl (0-1.1); BILIRUBIN,TOTAL 0.6 mg/dl (0.2-1.3); CALCIUM 8.7 mg/dl (8.4-10.2); CREATININE 1.01 mg/dl (0.61-1.24); POTASSIUM 5.1 mmol/L (3.5-5.1); TOTAL PROTEIN 6.8 g/dl (6.1-8.1)
--- NOTE | 2016-11-29 10:14 | PN ---
Date/Time of Note Date/Time of Note DATE: 11/29/16 TIME: 10:12 Assessment/Plan Lines/Catheters IV [facility] ([facility] Peripheral IV Assessment/Plan Chief Complaint/Hosp Course Patient is a 56-year-old male who is 13 years status post coronary artery bypass. He presents with 4 days of right upper quadrant and midepigastric abdominal pain. Abdominal ultrasound shows gallstones. CT shows gallstones with gallbladder wall thickening and pericholecystic fluid suggestive of cholecystitis. Ductal dilatation is not noted. He has had no fevers, chills, or jaundice Problems: Assessment/Plan Abdominal examination is benign TED drainage serosanguineous LFTs are normal Plan: Continue medical management. Surgically cleared for discharge pending medical evaluation Subjective 24 Hr Interval Summary Postoperative day #1 Exam/Review of Systems Vital Signs Vitals Vital Signs Date Time Temp Pulse Resp B/P Pulse Ox O2 Delivery O2 Flow Rate FiO2 11/29/16 08:38 81 11/29/16 08:14 98.4 19 106/64 95 11/28/16 23:15 Room Air 11/28/16 20:05 6.0 Intake and Output 11/28/16 11/28/16 11/29/16 14:59 22:59 06:59 Intake Total 800 ml 800 ml 700 ml Output Total 220 ml 650 ml Balance 800 ml 580 ml 50 ml Results Result Diagram: 11/29/16 0804 11/29/16 0804 PRASAD DYER MD Nov 29, 2016 10:14
[2016-11-29] MEDS: OXYCODONE/ACETAMINOPHEN (5/325) TAB PO PRN ×2 (11:19→21:08)
--- NOTE | 2016-11-29 16:29 | PN ---
Date/Time of Note Date/Time of Note DATE: 11/29/16 TIME: 16:26 Assessment/Plan VTE Prophylaxis VTE Prophylaxis Intervention: SCD's Lines/Catheters IV Catheter Type (from Nrs): Peripheral IV Assessment/Plan Chief Complaint/Hosp Course 1. Cholelithiasis with underlying choledocholithiasis. S/P ERCP on 11/27/2016 with endoscopic sphincterotomy and stone removal. S/P laparoscopic cholecystectomy and placement of a drain on 11/28/2016. Operative findings showed acute and chronic cholecystitis with extensive adhesions in the right upper quadrant 2. Transaminitis with hyperbilirubinemia. Largely resolved. Most probably secondary to #1. Management as per #1. Avoid hepatotoxic medications. 3. Acute nonoliguric kidney injury in a patient with an unknown baseline creatinine. Resolved. 4. Hyperkalemia. Resolved. 5. CAD. History of coronary stents and CABG. The patient's antiplatelet therapy will be put on hold because of possible surgical intervention. Continue beta-blockers. Patient's 12-lead EKG showing T-wave inversion in leads aVF, V1 , V2, V3, and V4. Status post cardiology evaluation. Telemetry rhythm showed occasional PVCs. 6. Dyslipidemia. Will resume statins. 7. Microcytic, hypochromic anemia. Iron panel showing low iron saturation and low iron with high ferritin. Monitor H&H closely. Continue iron supplements. 8. Microscopic hematuria. Outpatient Urology follow-up. 9. Fluids, electrolytes, and nutrition. IV fluids. Regular diet as tolerated. Discontinue IVFs. 10. DVT prophylaxis. Bilateral sequential compression devices. 11. Plan. Continue pain control. Encourage incentive spirometry. Encourage frequent ambulation. Patient having difficulty with passing gas. Complaining about significant incisional pain. Patient afraid about the TED drain being in place. Family anxious about taking the patient home. To discharge the patient in AM. Discussed with Dr. Franklin. Problems: Subjective 24 Hr Interval Summary Free Text/Dictation Was having trouble with urination in the AM and had to straight catheterize the patient. Currently no dysuria or trouble urinating. Complains of inability to move the bowel. Tolerating oral intake. Exam/Review of Systems Vital Signs Vitals Vital Signs Date Time Temp Pulse Resp B/P Pulse Ox O2 Delivery O2 Flow Rate FiO2 11/29/16 15:58 99.2 84 18 106/63 95 9/20/17 23:15 Room Air 11/28/16 20:05 6.0 Intake and Output 11/28/16 11/28/16 11/29/16 15:00 23:00 07:00 Intake Total 800 ml 800 ml 700 ml Output Total 220 ml 650 ml Balance 800 ml 580 ml 50 ml Exam General: Adequately build 56 year-old male lying in bed in no apparent distress. HEENT: Normocephalic, atraumatic. Eyes: Anicteric sclerae, conjunctivae clear. ENT: Nasal septum midline, oral mucosa moist. Neck supple. Respiratory: Bilaterally clear breath sounds. No use of accessory muscles of respiration. No adventitious breath sounds. Cardiovascular: S1, S2 heard. No murmurs or gallops. Abdomen: Soft and nondistended. Bowel sounds positive in all 4 quadrants. RUQ TED drain in place draining serosanguineous fluid. Genitourinary: Deferred. Extremities: No cyanosis, no clubbing, no edema. Peripheral pulses palpable. Neurologic: Cranial nerves II through XII grossly intact. The patient is awake, alert, and oriented. Skin: Normal skin turgor. No skin rashes. Results Result Diagram: 11/29/16 0804 11/29/16 0804 Results 24 hrs Laboratory Tests Test 11/29/16 08:04 White Blood Count 6.7 # Red Blood Count 6.13 H Hemoglobin 11.5 L Hematocrit 37.6 L Mean Corpuscular Volume 61.3 L Mean Corpuscular Hemoglobin 18.8 L Mean Corpuscular Hemoglobin Concent 30.6 L Red Cell Distribution Width 15.6 H Platelet Count 268 Mean Platelet Volume 10.1 Neutrophils % 82.4 H Lymphocytes % 9.2 L Monocytes % 8.0 Eosinophils % 0.0 Basophils % 0.0 Nucleated Red Blood Cells % 0.0 Neutrophils # 5.5 Lymphocytes # 0.6 L Monocytes # 0.5 Eosinophils # 0.0 Basophils # 0.0 Nucleated Red Blood Cells # 0.0 Sodium Level 142 Potassium Level 5.1 Chloride Level 108 Carbon Dioxide Level 22 Anion Gap 17 H Blood Urea Nitrogen 11 Creatinine 1.01 Glucose Level 85 Calcium Level 8.7 Phosphorus Level 4.0 Magnesium Level 1.9 Total Bilirubin 0.6 Direct Bilirubin 0.00 Indirect Bilirubin 0.6 Aspartate Amino Transf (AST/SGOT) 109 H Alanine Aminotransferase (ALT/SGPT) 95 H Alkaline Phosphatase 83 Total Protein 6.8 Albumin 3.6 Globulin 3.20 Albumin/Globulin Ratio 1.12 Medications Medications Current Medications Sodium Chloride (NS) 1,000 ml @ 100 mls/hr Q10H IV Last administered on 13:18; Admin Dose 100 MLS/HR; Start 11/26/16 at 17:30 Acetaminophen/ Hydrocodone Bitart ([place] (5/325)) 1 tab Q6H PRN PO MODERATE PAIN LEVEL 4-6; Start 11/26/16 at 17:30 Morphine Sulfate 2 mg 2 mg Q4H PRN IV SEVERE PAIN LEVEL 7-10 Last administered on 11/29/16 08:55; Admin Dose 2 MG; Start 11/26/16 at 17:30 Piperacillin Sod/ Tazobactam Sod (Zosyn 3.375gm/ 100 ml (Pmx)) 100 ml @ 200 mls /hr Q8 IVPB Last administered on 11/29/16 13:18; Admin Dose 200 MLS/HR; Start 11/26/16 at 21:00 Nitroglycerin (Nitroglycerin (Sl Tab) 0.4 Mg) 0.4 tab [id number] PRN SL CHEST PAIN; Start 11/26/16 at 23:30 Metoprolol Succinate (Toprol Xl) 12.5 mg DAILY PO Last administered on 08:54; Admin Dose 12.5 MG; Start 11/27/16 at 09:00 Docusate Sodium (Colace) 100 mg BID PO Last administered on 11/29/16 08:53; Admin Dose 100 MG; Start 11/27/16 at 09:00 Ferrous Sulfate (Ferrous Sulfate (Ec)) 325 mg BID PO Last administered on 08:54; Admin Dose 325 MG; Start 11/27/16 at 21:00 Oxycodone/ Acetaminophen (Percocet (5/ 325)) 1 tab Q4H PRN PO MILD PAIN (1-3); Start 11/28/16 at 20:00 Oxycodone/ Acetaminophen (Percocet (5/ 325)) 2 tab Q4H PRN PO MODERATE PAIN (4- 6) Last administered on 11/29/16 11:19; Admin Dose 2 TAB; Start 11/28/16 at 20: 00 Ondansetron HCl (Zofran Inj) 4 mg Q6H PRN IV NAUSEA; Start 11/28/16 at 20:00 Hydromorphone HCl (Dilaudid) 0.5 mg Q4H PRN IV PAIN Last administered on t 13:18; Admin Dose 0.5 MG; Start 11/28/16 at 23:00 CRISSY TALLEY NP Nov 29, 2016 16:28
[2016-11-29] MEDS ORDERED: ATORVASTATIN 40 MG TAB PO SCH (21:00)
[2016-11-30] VITALS (8 sets, daily range): BP systolic 118–125; BP diastolic 72–77; PULSE 68–78; RESP 18–19
[2016-11-30] MEDS: OXYCODONE/ACETAMINOPHEN (5/325) TAB PO PRN ×2 (03:20→12:41)
[2016-11-30] MEDS: PIPER-TAZO 3.375 GM IV (PMX) 100 ML IVPB SCH ×2 (05:52→14:06)
[2016-11-30 08:31] LABS: ABNORMAL IP MESSAGE 1; BASOPHILS % 0.1 % (0.0-2.0); EOSINOPHILS # 0.1 10^3/ul (0.0-0.5); HEMATOCRIT 34.5 % (42.0-52.0); HEMOGLOBIN 10.5 g/dl (14.0-18.0); LYMPHOCYTES # 1.1 10^3/ul (0.8-2.9); LYMPHOCYTES % 16.3 % (15.0-51.0); MEAN CORPUSCULAR HEMOGLOBIN 18.6 pg (29.0-33.0); MEAN CORPUSCULAR HGB CONC 30.4 g/dl (32.0-37.0); MEAN PLATELET VOLUME 10.7 fl (7.4-10.4); MONOCYTE # 0.8 10^3/ul (0.3-0.9); MONOCYTES % 11.7 % (0.0-11.0); NEUTROPHIL # 4.7 10^3/ul (1.6-7.5); NEUTROPHILS % 70.5 % (39.0-77.0); PLATELET COUNT 245 10^3/UL (140-415); POSITIVE DIFF @See below; RED BLOOD COUNT 5.66 10^6/ul (4.70-6.10); RED CELL DISTRIBUTION WIDTH 16.4 % (11.5-14.5); WHITE BLOOD COUNT 6.7 10^3/ul (4.8-10.8)
[2016-11-30] MEDS ORDERED: CLOPIDOGREL 75 MG TAB PO SCH (09:00)
[2016-11-30 09:05] LABS: MAGNESIUM 1.7 mg/dl (1.7-2.5); PHOSPHORUS 2.2 mg/dl (2.5-4.9)
[2016-11-30] MEDS: DOCUSATE SODIUM 100 MG CAP PO SCH (09:10)
[2016-11-30] MEDS: FERROUS SULFATE (EC) 325 MG TAB PO SCH (09:10)
[2016-11-30] MEDS: HYDROmorphONE 1 MG/ML SYG IV PRN (09:10)
[2016-11-30 09:11] LABS: ALBUMIN/GLOBULIN RATIO 0.96; CALCIUM 8.6 mg/dl (8.4-10.2); CREATININE 0.91 mg/dl (0.61-1.24); TOTAL PROTEIN 6.1 g/dl (6.1-8.1)
[2016-11-30] MEDS: METOPROLOL (XL) 25 MG TAB PO SCH (09:11)
--- NOTE | 2016-11-30 13:59 | PDOCDIS ---
CRISSY TALLEY NP 11/30/16 1359: Discharge Instructions DIAGNOSIS Discharge Diagnosis Cholecystitis. S/P Lap cholecystectomy. CONDITION Patient Condition: Stable HOME CARE INSTRUCTIONS: Diet Instructions: Low Fat /Cholesterol FOLLOW UP/APPOINTMENTS Follow-up Plan Solo Farmer MD [facility] Office Address [address] [place] [id number] Office OTHER ORDERS: Other Orders: 1. Regular, preferably low cholesterol diet as tolerated. 2. Keep incisions clean and dry. Avoid tub baths and swimming for 2 weeks. Use mild soap and pat dry the incisions. 3. Take medications as needed for pain. 4. Call the surgeon or go to the nearest ER if you have severe abdominal pain despite pain medications. 5. Call the surgeon or go to the nearest ER if you notice any bleeding or secretions coming out of the incision sites. Also call the surgeon if you notice any blood in stool, if you have persistent fevers, or any other unusual signs or symptoms. 6. Follow-up with the surgeon Dr. Farmer in 7 days for incision check and removal of drain. 7. Avoid heavy lifting [more than 25 pounds] for 8 weeks. 8. Follow-up with your PCP in 1 week. Arrange for outpatient Urology follow-up for microscopic hematuria. 9. Follow-up with outpatient Cardiology. DONNA DEVINE MD 11/30/16 8706: Discharge Instructions FOLLOW UP/APPOINTMENTS Follow-up Plan Patient should follow up with PCP for microhematuria and iron deficiency anemia CRISSY TALLEY NP Nov 30, 2016 13:59 DONNA DEVINE MD Nov 30, 2016 15:56
[2016-11-30] MEDS ORDERED: HYDR-3498 PO (14:05)
[2016-11-30] MEDS ORDERED: DOCU-216 PO (14:05)
[2016-11-30] MEDS ORDERED: ATOR40TA68 PO (14:05)
[2016-11-30] MEDS ORDERED: CLOP75TA28 PO (14:05)
[2016-11-30] MEDS ORDERED: FENO200 PO (14:05)
[2016-11-30] MEDS ORDERED: METO-335 PO ×2 (14:05→14:09)
[2016-11-30] MEDS ORDERED: FER325 PO (14:05)
[2016-11-30] MEDS ORDERED: CEPH-443 PO (14:06)
--- NOTE | 2016-11-30 14:34 | PN ---
Date/Time of Note Date/Time of Note DATE: 11/30/16 TIME: 14:30 Assessment/Plan VTE Prophylaxis VTE Prophylaxis Intervention: SCD's Lines/Catheters IV [facility] [place] [facility] Urinary Cath still in place: No Assessment/Plan Assessment/Plan Assessment: * Choledocholithiasis S/P ERCP sphincterotomy removal of stone * Cholelithiasis/cholecystitis Laparoscopic cholecystectomy with drain * Coronary artery disease/post CABG * Acute renal failure * Dyslipidemia Plan * Stable for outpatient management * Case discussed with Dr Patton Subjective 24 Hr Interval Summary Free Text/Dictation * Course reviewed * Patient seen and examined * No untoward events overnight Exam/Review of Systems Vital Signs Vitals Vital Signs Date Time Temp Pulse Resp B/P Pulse Ox O2 Delivery O2 Flow Rate FiO2 11/30/16 12:13 99.5 67 19 125/75 95 11/28/16 23:15 Room Air 11/28/16 20:05 6.0 Intake and Output 11/29/16 11/29/16 11/30/16 15:00 23:00 07:00 Intake Total 500 ml 1340 ml Output Total 150 ml 1300 ml Balance 350 ml 40 ml Exam Constitutional: alert, oriented Neck: non-tender, supple Respiratory: clear to auscultation, normal air movement Cardiovascular: nl pulses, regular rate and rhythm Gastrointestinal: non-tender, soft Extremities: normal pulses Neurological: nl speech, nl strength Skin: nl turgor Results Result Diagram: 11/30/16 0730 11/30/16 0730 Results 24 hrs Laboratory Tests Test 11/30/16 07:30 11/30/16 07:31 White Blood Count 6.7 Red Blood Count 5.66 Hemoglobin 10.5 L Hematocrit 34.5 L Mean Corpuscular Volume 61.0 L Mean Corpuscular Hemoglobin 18.6 L Mean Corpuscular Hemoglobin Concent 30.4 L Red Cell Distribution Width 16.4 H Platelet Count 245 Mean Platelet Volume 10.7 H Neutrophils % 70.5 Lymphocytes % 16.3 Monocytes % 11.7 H Eosinophils % 1.0 Basophils % 0.1 Nucleated Red Blood Cells % 0.0 Neutrophils # 4.7 Lymphocytes # 1.1 Monocytes # 0.8 Eosinophils # 0.1 Basophils # 0.0 Nucleated Red Blood Cells # 0.0 Sodium Level 140 Potassium Level 4.0 Chloride Level 106 Carbon Dioxide Level 29 Anion Gap 9 # Blood Urea Nitrogen 9 Creatinine 0.91 Glucose Level 91 Calcium Level 8.6 Total Bilirubin 1.0 Direct Bilirubin 0.00 Indirect Bilirubin 1.0 Aspartate Amino Transf (AST/SGOT) 84 H Alanine Aminotransferase (ALT/SGPT) 80 H Alkaline Phosphatase 74 Total Protein 6.1 Albumin 3.0 L Globulin 3.10 Albumin/Globulin Ratio 0.96 Phosphorus Level 2.2 #L Magnesium Level 1.7 Medications Medications Current Medications Acetaminophen/ Hydrocodone Bitart ([place] (5/325)) 1 tab Q6H PRN PO MODERATE PAIN LEVEL 4-6; Start 11/26/16 at 17:30 Morphine Sulfate 2 mg 2 mg Q4H PRN IV SEVERE PAIN LEVEL 7-10 Last administered on 11/29/16 08:55; Admin Dose 2 MG; Start 11/26/16 at 17:30 Piperacillin Sod/ Tazobactam Sod (Zosyn 3.375gm/ 100 ml (Pmx)) 100 ml @ 200 mls /hr Q8 IVPB Last administered on 11/30/16 14:06; Admin Dose 200 MLS/HR; Start 11/26/16 at 21:00 Nitroglycerin (Nitroglycerin (Sl Tab) 0.4 Mg) 0.4 tab [id number] PRN SL CHEST PAIN; Start 11/26/16 at 23:30 Metoprolol Succinate (Toprol Xl) 12.5 mg DAILY PO Last administered on 09:11; Admin Dose 12.5 MG; Start 11/27/16 at 09:00 Docusate Sodium (Colace) 100 mg BID PO Last administered on 11/30/16 09:10; Admin Dose 100 MG; Start 11/27/16 at 09:00 Ferrous Sulfate (Ferrous Sulfate (Ec)) 325 mg BID PO Last administered on 09:10; Admin Dose 325 MG; Start 11/27/16 at 21:00 Oxycodone/ Acetaminophen (Percocet (5/ 325)) 1 tab Q4H PRN PO MILD PAIN (1-3) Last administered on 11/30/16 03:20; Admin Dose 1 TAB; Start 11/28/16 at 20:00 Oxycodone/ Acetaminophen (Percocet (5/ 325)) 2 tab Q4H PRN PO MODERATE PAIN (4- 6) Last administered on 11/30/16 12:41; Admin Dose 2 TAB; Start 11/28/16 at 20: 00 Ondansetron HCl (Zofran Inj) 4 mg Q6H PRN IV NAUSEA Last administered on 20:50; Admin Dose 4 MG; Start 11/28/16 at 20:00 Hydromorphone HCl (Dilaudid) 0.5 mg Q4H PRN IV PAIN Last administered on 09:10; Admin Dose 0.5 MG; Start 11/28/16 at 23:00 Atorvastatin Calcium (Lipitor) 40 mg HS PO Last administered on 11/29/16 21:08 ; Admin Dose 40 MG; Start 11/29/16 at 21:00 Clopidogrel Bisulfate (plaVIX) 75 mg DAILY PO Last administered on 11/30/16 09 :10; Admin Dose 75 MG; Start 11/30/16 at 09:00 FERMIN BANUELOS NP Nov 30, 2016 14:34
--- NOTE | 2016-11-30 15:22 | DS ---
CRISSY TALLEY MIRZA 11/30/16 1522: Date/Time of Note Date/Time of Note DATE: 11/30/16 TIME: 15:19 Discharge Summary Admission/Discharge Info Admit Date/Time Nov 26, 2016 at 17:39 Discharge Date/Time Discharge Diagnosis 1. Cholelithiasis with underlying choledocholithiasis. S/P ERCP on 11/27/2016 with endoscopic sphincterotomy and stone removal. 2. Acute and chronic cholecystitis with extensive adhesions in the right upper quadrant. S/P laparoscopic cholecystectomy and placement of a drain on 2016. 3. Acute nonoliguric kidney injury. Resolved. 4. CAD. 5. Dyslipidemia. 6. Microcytic, hypochromic anemia. 7. Iron deficiency. 8. Microscopic hematuria. Patient Condition: Stable Consults 1. Solo Farmer MD, General Surgery. 2. Sundar Patton MD, Gastroenterology. Procedures Preoperative Diagnosis Acute cholecystitis Postoperative Diagnosis Acute and chronic cholecystitis with extensive adhesions in the right upper quadrant Operation Performed 1. Laparoscopic cholecystectomy 2. Placement of drain Pre-procedure Diagnosis * Choledocholithiasis Post-procedure Diagnosis Assessment: * Choledocholithiasis * Post ERS * Post stone removal Procedure Performed: ERCP (+ERS + Stone removal) MRCP IMPRESSION: Cholelithiasis and gallbladder sludge. Gallbladder is mildly distended and gallbladder wall measures at the upper limits of normal with minimal edema in the pericholecystic fat. Findings are equivocal for acute cholecystitis and clinical correlation is required. Without intravenous contrast, this MRI does not distinguish a sludge ball from a gallbladder mass and follow-up ultrasound is advised after the acute situation resolves. Mild intrahepatic and extrahepatic biliary duct dilatation. There is a suspected 0.2 cm nonobstructing common duct stone in the supra-pancreatic segment of the common bile duct corresponding to a punctate calcification seen on CT. Negative for an obstructing calculus. Hepatorenal cysts. CT Abdomen & Pelvis IMPRESSION: 1. Gallbladder is distended and contains multiple gallstones. Gallbladder wall thickening and pericholecystic inflammation are identified. Findings are suggestive of acute cholecystitis. 2. Small calcific densities are seen along the expected course of the distal common bile duct, concerning for choledocholithiasis. There is mild dilatation of the common bile duct, measuring 9 mm. Consider MRCP for further evaluation. 3. Aortoiliac atherosclerotic calcifications are present. 4. Urinary bladder is moderately distended, concerning for urinary retention. 5. Mild retained fecal material may indicate constipation. 6. Bilateral fat containing inguinal hernias are seen, without incarceration. 2D Echocardiogram Conclusions 1. Normal left ventricular systolic function. Normal left ventricular cavity size. Left ventricular wall thickness upper limits of normal. Ejection fraction is visually estimated at 45-50 %. Tissue Doppler/Mitral Doppler indices are consistent with impaired relaxation (Stage I diastolic dysfunction). These segments of the LV are hypokinetic mid anterior segment. 2. There is mild enlargement of left atrium. 3. Normal appearance and function of the mitral valve with trace physiologic regurgitation. 4. Aortic cusps appear mildly calcified. Trace aortic valve regurgitation. 5. Normal appearance of the tricuspid valve. Unable to obtain RVSP due to minimal presence of tricuspid regurgitation. There is trace tricuspid regurgitation. 6. Pulmonic valve not well visualized. There is trace pulmonic regurgitation. Hx of Present Illness Reason for admission: Sent in by primary MD because of abdominal pain. Consultants 1. Solo Farmer MD, General Surgery. 2. Sundar Patton MD , Gastroenterology. This is a 56-year-old Chinese male with past medical history of essential hypertension, dyslipidemia, CAD status post coronary artery stenting and CABG who came to the emergency room with chief complaint of abdominal pain. 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 As per the patient's family who was at the bedside, he has known history of gallstones and has been having abdominal pain on and off for the past 1 year. During this episode he had abdominal pain for 4 days. The patient had an episode of nonbilious, nonbloody vomiting. The patient denied any fevers. The patient has been constipated. Although the patient has extensive cardiac history, he does not see any paper sorter and counter in the [place]. He had his CABG done in [place]. The patient is not compliant with his antiplatelet medications. The patient verbalized that he took Plavix last time approximately 10 days ago. In the emergency room, the patient was noticed to have transaminitis with hyperbilirubinemia. The patient was noticed to have microcytic, hypochromic anemia. The patient underwent a CT scan of the abdomen and pelvis that showed distended gallbladder with multiple gallstones and gallbladder wall thickening and pericholecystic inflammation, findings suggestive of cholecystitis. The CT scan also revealed mild dilatation of the common bile duct measuring up to [address] also showed small calcific densities along the expected course of the common bile duct concerning for choledocholithiasis. The gallbladder ultrasound showed calcified stones and sludge within the gallbladder, but no evidence of gallbladder wall thickening or pericholecystic fluid. He was treated with IV fluids, analgesics, and IV antibiotics in the emergency room. Hospital Course The patient underwent an MRCP that showed evidence of choledocholithiasis. The patient underwent an ERCP on 11/27/2016 with endoscopic sphincterotomy and stone removal. The patient was taken to the OR on 11/28/2016 and the patient underwent a laparoscopic cholecystectomy and placement of a drain. Operative findings showed acute and chronic cholecystitis with extensive adhesions in the right upper quadrant. The patient was noticed to have acute nonoliguric kidney injury upon presentation. This was resolved with appropriate IV hydration. The patient also had minimal hyperkalemia upon presentation. This was resolved with resolution of the patient's acute kidney injury. The patient has underlying history of CAD. He is status post coronary artery stents and CABG back in [facility]. The patient was taking antiplatelet therapy. However he was taking antiplatelet therapy not on a regular basis. The patient verbalized that he was instructed to take antiplatelet drugs noted on a daily basis. Patient's 12-lead EKG showed T-wave inversions in leads aVF, V1, V2, V3 and V4. The patient was evaluated by cardiology. The patient underwent a 2D echocardiogram that showed an ejection fraction of 45-50%. He was maintained on beta-blockers. Patient has underlying dyslipidemia and he was taking statins and fibrates at home. These were put on hold when the patient was admitted because of underlying transaminitis and hyperbilirubinemia. Once the patient's transaminitis improved, the patient was resumed on a statins. Patient was noticed to have microcytic, hypochromic anemia. The patient's iron panel showed a low iron saturation and low iron with high ferritin. The patient was started on iron supplements. The patient's stool for occult blood was negative. The patient needs outpatient gastroenterology evaluation for further evaluation of his anemia. The patient was noticed to have microscopic hematuria even with the repeat urinalysis. Etiology remains unclear. The patient needs outpatient urology follow-up. Postoperatively, the patient was started on a clear liquid diet and the patient' s diet was advanced as tolerated to a regular consistency diet. The patient was cleared by general surgery to be discharged home. Patient does not have a outpatient primary care physician or paper sorter and counter. Of Case management consult was put in for a arranging with insurance for outpatient primary care follow-up and arrange for outpatient gastroenterology and urology follow-up with the PCP. Case Management was also ordered to fax the discharge summary to the patient's PCP's office. Discharge Instructions 1. Regular, preferably low cholesterol diet as tolerated. 2. Keep incisions clean and dry. Avoid tub baths and swimming for 2 weeks. Use mild soap and pat dry the incisions. 3. Take medications as needed for pain. 4. Call the surgeon or go to the nearest ER if you have severe abdominal pain despite pain medications. 5. Call the surgeon or go to the nearest ER if you notice any bleeding or secretions coming out of the incision sites. Also call the surgeon if you notice any blood in stool, if you have persistent fevers, or any other unusual signs or symptoms. 6. Follow-up with the surgeon Dr. Farmer in 7 days for incision check and removal of drain. 7. Avoid heavy lifting [more than 25 pounds] for 8 weeks. 8. Follow-up with your PCP in 1 week. Arrange for outpatient Urology follow-up for microscopic hematuria. Arrange for outpatient gastroenterology follow-up for further evaluation of anemia. 9. Follow-up with outpatient Cardiology. The patient verbalized understanding of his discharge instructions. At this time I would like to thank all the consultants for seeing the patient, doing the necessary procedures, and providing clinical recommendations. Discussed with Dr. Franklin. Home Meds Active Scripts Metoprolol Succinate* (Toprol XL*) 25 Mg Tab.sr.24h, 12.5 MG PO DAILY, #30 TAB Prov:CRISSY TALLEY NP 11/30/16 Cephalexin* (Keflex*) 500 Mg Capsule, 500 MG PO Q8 for 7 Days, #21 CAP Prov:CRISSY TALLEY NP 11/30/16 Ferrous Sulfate* (Ferrous Sulfate*) 325 Mg Tabec, 325 MG PO BID, #60 TAB Prov:CRISSY TALLEY NP 11/30/16 Atorvastatin* (Atorvastatin*) 40 Mg Tablet, 40 MG PO HS, #30 TAB Prov:CRISSY TALLEY NP 11/30/16 Docusate Sodium (Dok) 100 Mg Capsule, 100 MG PO BID, #60 CAP Prov:CRISSY TALLEY [employer]NER 11/30/16 Hydrocodone Bit-Acetaminophen (Hydrocodone Bit-APAP) 5-325MG Tablet, 1 TAB PO Q6H Y for MODERATE PAIN LEVEL 4-6, #20 TAB Prov:CRISSY TALLEY SR. [employer] PLANNER 11/30/16 Fenofibrate* (Fenofibrate*) 200 Mg Cap, 200 MG PO DAILY for 30 Days, #30 CAP Prov:CRISSY TALLEY SR. [employer] PLANNER 11/30/16 Clopidogrel Bisulfate (Clopidogrel) 75 Mg Tablet, 75 MG PO DAILY, #30 TAB Prov:CRISSY TALLEY SR. [employer] PLANNER 11/30/16 Discontinued Reported Medications Clopidogrel Bisulfate (Clopidogrel) Unknown Strength Tablet, PO DAILY, #30 TAB 11/26/16 Atorvastatin* (Atorvastatin*) Unknown Strength Tablet, PO QHS, #30 TAB 11/26/16 Nitroglycerin* (Nitroglycerin* SL) 0.4 Mg Tab.subl, 0.4 MG SL Q5MIN Y for CHEST PAIN, BOTTLE 11/26/16 Fenofibrate* (Fenofibrate*) Unknown Strength Cap, PO DAILY, CAP 11/26/16 Metoprolol Succinate* (Toprol XL*) Unknown Strength Tab.sr.24h, PO DAILY, #30 TAB 11/26/16 Follow-up Plan Solo Farmer MD Specialty General Surgery Office Address [address] [place] [address] Office Primary Care Provider Care Physician No Primary Time spent on discharge: > 30 minutes Pending Labs Laboratory Tests Test 11/30/16 07:30 11/30/16 07:31 White Blood Count 6.710^3/ul (4.8-10.8) Red Blood Count 5.6610^6/ul (4.70-6.10) Hemoglobin 10.5g/dl (14.0-18.0) Hematocrit 34.5% (42.0-52.0) Mean Corpuscular Volume 61.0fl (82.0-101.0) Mean Corpuscular Hemoglobin 18.6pg (29.0-33.0) Mean Corpuscular Hemoglobin Concent 30.4g/dl (32.0-37.0) Red Cell Distribution Width 16.4% (11.5-14.5) Platelet Count 69404^3/UL (140-415) Mean Platelet Volume 10.7fl (7.4-10.4) Neutrophils % 70.5% (39.0-77.0) Lymphocytes % 16.3% (15.0-51.0) Monocytes % 11.7% (0.0-11.0) Eosinophils % 1.0% (0.0-7.0) Basophils % 0.1% (0.0-2.0) Nucleated Red Blood Cells % 0.0/100WBC (0.0-0.0) Neutrophils # 4.710^3/ul (1.6-7.5) Lymphocytes # 1.110^3/ul (0.8-2.9) Monocytes # 0.810^3/ul (0.3-0.9) Eosinophils # 0.110^3/ul (0.0-0.5) Basophils # 0.010^3/ul (0.0-0.1) Nucleated Red Blood Cells # 0.010^3/ul (0.0-0.0) Sodium Level 140mmol/L (135-144) Potassium Level 4.0mmol/L (3.5-5.1) Chloride Level 106mmol/L (97-110) Carbon Dioxide Level 29mmol/L (21-31) Anion Gap 9 (8-16) Blood Urea Nitrogen 9mg/dl (7-20) Creatinine 0.91mg/dl (0.61-1.24) Glucose Level 91mg/dl (70-220) Calcium Level 8.6mg/dl (8.4-10.2) Total Bilirubin 1.0mg/dl (0.2-1.3) Direct Bilirubin 0.00mg/dl (0.00-0.20) Indirect Bilirubin 1.0mg/dl (0-1.1) Aspartate Amino Transf (AST/SGOT) 84IU/L (15-46) Alanine Aminotransferase (ALT/SGPT) 80IU/L (13-69) Alkaline Phosphatase 74IU/L (42-121) Total Protein 6.1g/dl (6.1-8.1) Albumin 3.0g/dl (3.3-4.9) Globulin 3.10g/dl (1.3-3.2) Albumin/Globulin Ratio 0.96 Phosphorus Level 2.2mg/dl (2.5-4.9) Magnesium Level 1.7mg/dl (1.7-2.5) DONNA FRANKLIN MD 11/30/16 1600: Discharge Summary Admission/Discharge Info Hospital Course Pt on fibrate, not fibroid at home needs PCP f/u for microhematuria and STEPHANY. needs new paper sorter and counter Home Meds Active Scripts Metoprolol Succinate* (Toprol XL*) 25 Mg Tab.sr.24h, 12.5 MG PO DAILY, #30 TAB Prov:CRISSY TALLEY NP 11/30/16 Cephalexin* (Keflex*) 500 Mg Capsule, 500 MG PO Q8 for 7 Days, #21 CAP Prov:CRISSY TALLEY NP 11/30/16 Ferrous Sulfate* (Ferrous Sulfate*) 325 Mg Tabec, 325 MG PO BID, #60 TAB Prov:CRISSY TALLEY NP 11/30/16 Atorvastatin* (Atorvastatin*) 40 Mg Tablet, 40 MG PO HS, #30 TAB Prov:CRISSY TALLEY NP 11/30/16 Docusate Sodium (Dok) 100 Mg Capsule, 100 MG PO BID, #60 CAP Prov:CRISSY TALLEY NP 11/30/16 Hydrocodone Bit-Acetaminophen (Hydrocodone Bit-APAP) 5-325MG Tablet, 1 TAB PO Q6H Y for MODERATE PAIN LEVEL 4-6, #20 TAB Prov:CRISSY TALLEY NP 11/30/16 Fenofibrate* (Fenofibrate*) 200 Mg Cap, 200 MG PO DAILY for 30 Days, #30 CAP Prov:CRISSY TALLEY NP 11/30/16 Clopidogrel Bisulfate (Clopidogrel) 75 Mg Tablet, 75 MG PO DAILY, #30 TAB Prov:CRISSY TALLEY NP 11/30/16 Discontinued Reported Medications Clopidogrel Bisulfate (Clopidogrel) Unknown Strength Tablet, PO DAILY, #30 TAB 11/26/16 Atorvastatin* (Atorvastatin*) Unknown Strength Tablet, PO QHS, #30 TAB 11/26/16 Nitroglycerin* (Nitroglycerin* SL) 0.4 Mg Tab.subl, 0.4 MG SL Q5MIN Y for CHEST PAIN, BOTTLE 11/26/16 Fenofibrate* (Fenofibrate*) Unknown Strength Cap, PO DAILY, CAP 11/26/16 Metoprolol Succinate* (Toprol XL*) Unknown Strength Tab.sr.24h, PO DAILY, #30 TAB 11/26/16 CRISSY TALLEY NP Nov 30, 2016 15:22 DONNA FRANKLIN MD Nov 30, 2016 16:00
== END 2016-11-30 15:27 | disposition home or self-care (01) | DRG 418 ==
LOC: E/R 11:42 → PP2 17:39 → MS4 11-28 20:20
PROVIDERS: ADMIT Internal Medicine; ATTEND Internal Medicine
PROC: 0FC98ZZ Extirpation of Matter from Common Bile Duct, Via Natural or Artificial Opening Endoscopic (ICD-10-PCS; 2016-11-27)
PROC: BF10YZZ Fluoroscopy of Bile Ducts using Other Contrast (ICD-10-PCS; 2016-11-27)
PROC: 0FT44ZZ Resection of Gallbladder, Percutaneous Endoscopic Approach (ICD-10-PCS; principal; 2016-11-28 16:30)
DX: K80.66 Calculus of gallbladder and bile duct with acute and chronic cholecystitis without obstruction (principal); N17.9 Acute kidney failure, unspecified; K66.0 Peritoneal adhesions (postprocedural) (postinfection); E87.5 Hyperkalemia; I25.10 Atherosclerotic heart disease of native coronary artery without angina pectoris; D50.9 Iron deficiency anemia, unspecified; E78.5 Hyperlipidemia, unspecified; E80.6 Other disorders of bilirubin metabolism; R74.0 Nonspecific elevation of levels of transaminase and lactic acid dehydrogenase [LDH]; R31.29 Other microscopic hematuria; I25.2 Old myocardial infarction; Z95.5 Presence of coronary angioplasty implant and graft; Z95.1 Presence of aortocoronary bypass graft; Z91.14 Patient's other noncompliance with medication regimen
CPT/HCPCS: 36415; 71010; 74176; 74181; 74330; 76705; 80053; 81001; 81003; 82270; 82728; 83540; 83690; 83735; 84100; 84443; 85025; 85610; 85730; 88304; 93005; 93306; 96374; 96375; J0131; J0690; J1100; J1170; J2175; J2250; J2270; J2405; J2543; J2765; J2795; J3010; J7030; Q9967